=== PATIENT | female | born 1960 | race Caucasian/White ===

== ENCOUNTER 2020-09-21 08:16 | Outpatient (REF) | payer OTHER, SELFPAY ==
--- NOTE | 2020-09-21 08:21 | MM_ITS ---
EXAMINATION: MM SCREENING DIGITAL BREAST TOMOSYNTHESIS, BILATERAL CLINICAL INFORMATION: Screening. Asymptomatic. Family history breast cancer, aunts x2, age 80s). Personal history excisional biopsy 2006. The lifetime risk of breast cancer based on the Tyrer-Cuzick Model is 24%. COMPARISON: Mammography: 09/16/2019, 08/26/2018, 04/28/2017 TECHNIQUE: Digital breast tomosynthesis is performed in both the craniocaudal and mediolateral oblique views along with computer-aided detection (CAD). Synthesized 2D images are generated from the tomosynthesis. FINDINGS: There are scattered areas of fibroglandular density (ACR BI-RADS breast composition Category b). Parenchymal pattern is similar to prior exams. There is no developing density or interval mass or architectural abnormality. There are scattered bilateral calcifications again seen, some are ductal secretory. The axilla are unremarkable. No significant changes. MM/MM tomosynthesis screening BI IMPRESSION: No significant changes from prior exams. ASSESSMENT: BI-RADS 2: Benign RECOMMENDATION: 1. Routine annual mammography screening. 2. The lifetime risk of breast cancer based on the Tyrer-Cuzick Model is 24%. Additional annual adjunct screening with breast MRI may be of benefit in women with a risk score of 20% or greater. This patient's information was entered into a reminder system with a target due date for their next mammogram.
== END 2020-09-21 08:17 | disposition home or self-care (01) ==
LOC: HO.MAMMO 08:16
PROVIDERS: PCP Internal Medicine; Visit Provider Internal Medicine
DX: Z12.31 Encounter for screening mammogram for malignant neoplasm of breast (principal)
CPT/HCPCS: 77063; 77067

== ENCOUNTER 2021-12-04 09:12 | Outpatient (REF) | payer OTHER, SELFPAY ==
--- NOTE | ~2021-12-04 | MM_ITS ---
EXAMINATION: MM SCREENING DIGITAL BREAST TOMOSYNTHESIS, BILATERAL CLINICAL INFORMATION: Screening. Asymptomatic. The lifetime risk of breast cancer based on the Tyrer-Cuzick Model is 16.0%. COMPARISON: Mammography: September 21, 2020 and studies dating back to May 06, 2012 TECHNIQUE: Digital breast tomosynthesis is performed in both the craniocaudal and mediolateral oblique views along with computer-aided detection (CAD). Synthesized 2D images are generated from the tomosynthesis. FINDINGS: There are scattered areas of fibroglandular density (ACR BI-RADS breast composition Category b). There are no new significant masses, abnormal calcifications, or other abnormalities. Stable postsurgical scar about the lateral aspect of the right breast noted. MM/MM tomosynthesis screening BI IMPRESSION: There are no significant changes from prior study. ASSESSMENT: BI-RADS 2: Benign RECOMMENDATION: Routine annual mammography screening. This patient's information was entered into a reminder system with a target due date for their next mammogram.
== END 2021-12-04 09:13 | disposition home or self-care (01) ==
LOC: HO.MAMMO 09:12
PROVIDERS: PCP Internal Medicine; Visit Provider Internal Medicine
DX: Z12.31 Encounter for screening mammogram for malignant neoplasm of breast (principal)
CPT/HCPCS: 77063; 77067

== ENCOUNTER → 2022-10-14 08:51 | Outpatient (REF) | payer OTHER, SELFPAY ==
--- NOTE | 2022-10-14 08:55 | CA_ITS ---
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 The visually estimated ejection fraction is >70%. - There is mild calcification of the aortic valve. - There is moderate mitral annular calcification. Findings Procedure Information Contrast agent, definity, is being given per protocol without apparent complications. Left Ventricle Normal left ventricular cavity size. The left ventricular systolic function is hyperdynamic. The visually estimated ejection fraction is >70%. There is no evidence of regional wall motion abnormalities. Diastolic function is normal for age. There is mild septal asymmetric hypertrophy. Right Ventricle Normal right ventricular cavity size and systolic function. Atria Both atria are normal in size. Aortic Valve There is mild calcification of the aortic valve. There is no aortic valve stenosis. There is no aortic valve regurgitation. Mitral Valve There is moderate mitral annular calcification. There is no mitral valve regurgitation. There is no mitral valve stenosis. Pulmonic Valve The pulmonic valve is likely normal. Tricuspid Valve Normal tricuspid valve structure. There is no tricuspid valve regurgitation. The right ventricular systolic pressure is normal. Great Vessels The asc aorta is normal in size. Venous The inferior vena cava is normal in size and collapses greater than 50% with inspiration. Pericardium/Pleural There is no evidence of pericardial effusion. Prior Study Comparison Changes noted compared to prior study dated: 10/01/2013. LV hyperdynamic. Measurements 2D Linear Measurements IVSd: 1.27 0.6-0.9/0.6-1.0 cm LVIDd: 5.07 3.9-5.3/4.2-5.9 cm LVIDd Index: 2.34 2.4-3.2/2.2-3.1 cm/m2 LVIDs: 3.23 2.0-3.6 cm LVPWd: 0.95 0.7-1.1 cm LA Diam: 4.50 2.7-3.8/3.0-4.0 cm LAIDs Index: 2.07 1.5-2.3 cm/m2 LV Mass: 267.71 67-162/88-224 g LV Mass Index: 123.37 43-95/49-115 g/m2 LVOT Diam: 2.20 3.0+(-)1.3 cm 2D Systolic Function EF 4C: 79.60 >55% EF 2C: 77.30 >55% EF BiP: 78.90 >55% Mitral Valve MV VTI: 0.41 MV Pk Carlos Alberto: 1.15 MV Mn Carlos Alberto: 0.60 MV Pk Grad: 5.00 MV Mn Grad: 2.00 MV Pk E: 1.14 MV PK A: 1.05 MV Decel Time: 267.00 E/A: 1.10 E'Lateral: 8.49 E'Medial: 5.98 E/E' Med: 19.10 E/E' Lat: 13.40 PHT: 78.00 MVA PHT: 2.82 MVA Continuity: 2.63 Decel Gila: 4.25 Aortic Valve AoV Pk Carlos Alberto: 2.51 AoV Mn Carlos Alberto: 1.60 AoV VTI: 0.51 AoV Pk Grad: 25.00 Aov Mn Grad: 13.00 LIAT Cont.VTI: 2.15 LVOT LVOT Pk Carlos Alberto: 1.23 LVOT Mn Carlos Alberto: 0.89 LVOT VTI: 0.29 LVOT Pk Grad: 6.00 LVOT Mn Grad: 4.00 LVOT Diam: 2.20 LVOT Area: 3.80 Diastolic Function MV Pk E: 1.14 MV Pk A: 1.05 E/A: 1.10 E'Medial: 5.98 E/E' Med: 19.10 E' Laterial: 8.49 E/E' Lat: 13.40 Right Ventricle TAPSE (mm): 23.80 TVS' Carlos Alberto: 12.60 Tricuspid Valve RA Press: 3.00 Great Vessels Aorta Sinus of Valsalva: 3.20 2.0-3.5 cm Ao Asc: 3.50 2.1-3.4 cm Pulmonary Veins Pulm Vein S/D 0.80 Pulmonary Valve PV Pk Carlos Alberto: 1.12 Peak PV Grad: 5.00 Updated in Other Vendor System with Status of Final Nicola Iyer MD electronically signed on 10/14/2022 1:45:16 PM with status of Final
== END ==
LOC: HO.CARD 08:51
PROVIDERS: PCP Internal Medicine; Visit Provider Internal Medicine
DX: R01.1 Cardiac murmur, unspecified (principal)
CPT/HCPCS: 93306; Q9957

== ENCOUNTER 2022-10-30 09:09 | Outpatient (REF) | payer OTHER, SELFPAY ==
[2022-10-30 11:24] LABS: MANUAL DIFF FLAG NO
[2022-10-30 11:31] LABS: Basophils Percent Auto 0.6 % (0-2); Eosinophils Absolute Auto 0.2 X10*3/uL (0.0-0.4); Eosinophils Percent Auto 2.8 % (0-4); Hematocrit 44.4 % (37.0-47.0); Hemoglobin 14.5 g/dl (12.0-16.0); Imm Gran Abs Auto 0.02 X10*3/uL (0.00-0.03); Imm Gran Pct Auto 0.3 % (0.0-0.4); Lymphocytes Absolute Auto 2.5 X10*3/uL (1.2-4.9); Lymphocytes Percent Auto 38.7 % (20-40); Mean Corpuscular HGB Conc 32.7 g/dl (31.0-35.0); Mean Corpuscular Hemoglobin 29.2 pg (27.0-33.0); Mean Corpuscular Volume 89.3 fL (80.0-98.0); Mean Platelet Volume 10.7 fL (9.4-12.3); Monocytes Absolute Auto 0.5 X10*3/uL (0.1-1.2); Neutrophils Absolute Auto 3.3 x10*3/uL (2.0-8.3); Neutrophils Percent Auto 50.6 % (45-73); Platelet Count 250 X10*3/uL (160-400); Red Blood Count 4.97 X10*6/uL (4.20-5.50); Red Cell Distribution Width 13.4 % (11.0-16.0); White Blood Count 6.5 X10*3/uL (4.8-10.8)
[2022-10-30 12:05] LABS: Alanine Aminotransferase 62 U/L (0-31); Anion Gap 13 (12-20); Aspartate Amino Transferase 56 U/L (5-31); Blood Urea Nitrogen 14 mg/dL (9-16); Calcium 9.2 mg/dL (8.4-10.2); Carbon Dioxide 26 mmol/L (22-29); Chloride 107 mmol/L (96-108); Cholesterol 215 mg/dL; Estimated Glomerular Filt Rate > 60; Glucose Fasting 109 mg/dL (60-99); HDL Cholesterol 39 mg/dL; LDL Cholesterol Calculated 143 mg/dl; Potassium 4.2 mmol/L (3.3-5.1); Sodium 142 mmol/L (135-145); Triglycerides 166 mg/dL
[2022-10-30 12:07] LABS: TSH reflex Free T4 2.09 uIU/mL (0.32-4.0); Vitamin D 25-OH Total 22.9 ng/mL (>30)
== END 2022-10-30 09:10 | disposition home or self-care (01) ==
LOC: HO.HMGCLDS 09:09
PROVIDERS: PCP Internal Medicine; Visit Provider Internal Medicine
DX: E55.9 Vitamin D deficiency, unspecified (principal); E66.01 Morbid (severe) obesity due to excess calories; E78.5 Hyperlipidemia, unspecified; I10 Essential (primary) hypertension; M17.0 Bilateral primary osteoarthritis of knee; N95.1 Menopausal and female climacteric states
CPT/HCPCS: 36415; 80048; 80061; 82306; 84443; 84450; 84460; 85025

== ENCOUNTER 2022-11-27 11:15 | Outpatient (REF) | payer OTHER, SELFPAY ==
[2022-12-03 06:09] LABS: HPV mRNA E6/E7 rflx Not Detected (Not Detected)
== END 2022-11-27 11:16 | disposition home or self-care (01) ==
LOC: HO.LNP 11:15
PROVIDERS: PCP Internal Medicine; Visit Provider Advanced Practice Midwife
DX: Z01.419 Encounter for gynecological examination (general) (routine) without abnormal findings (principal); N95.1 Menopausal and female climacteric states; N89.8 Other specified noninflammatory disorders of vagina; R39.15 Urgency of urination
CPT/HCPCS: 87624; 88142

== ENCOUNTER 2022-12-09 08:09 | Outpatient (REF) | payer OTHER, SELFPAY ==
--- NOTE | ~2022-12-09 | MM_ITS ---
EXAMINATION: BONE DENSITOMETRY CLINICAL INDICATION: Menopause. COMPARISON: This is the patient's baseline examination. TECHNIQUE: Using a i[employer]UREtrac DXA System (software version: 13.1) manufactured by [employer], dual-energy x-ray absorptiometry was performed of the lumbar spine and left hip. The images are of good technical quality. Summary results are attached. FINDINGS: AP SPINE L1-L4: BMD 1.311 g/cm2, Z-score 1.3, T-score 1.1, normal. LEFT FEMUR, NECK: BMD 0.942 g/cm2, Z-score -0.1, T-score -0.7, normal. LEFT FEMUR, TOTAL: BMD 1.114 g/cm2, Z-score 1.1, T-score 0.8, normal. IDENTIFIED RISK FACTORS: Osteoporosis. Low calcium intake. Menopause. HISTORY OF FRACTURE: None listed. MEDICATIONS: None listed. MM/XR DEXA axial skeleton IMPRESSION: 1. DIAGNOSIS: Normal bone density based on the lowest T-score value of -0.7 in the femoral neck applying World Health Organization criteria. 2. 10-YEAR FRACTURE RISK PREDICTION, FRAX: According to the guidelines, FRAX calculation should only be performed on patients in the osteopenia bone density category. Therefore, FRAX was not performed on this patient.? 3. Treatment Recommendations: NOF guidelines recommend consideration for treatment in postmenopausal women and men age 50 and older presenting with the following: -A hip or vertebral (clinical or morphometric) fracture. -T-score less than or equal to -2.5 at the femoral neck or spine after appropriate evaluation to exclude secondary causes. -Low bone mass at the hip or spine and a 10-year fracture probability by FRAX of greater than or equal to 3% for hip fracture or greater than or equal to 20% for major osteoporotic fracture based on the [place] adapted WHO algorithm. 4. Other Recommendations: All treatment decisions require clinical judgment and consideration of individual patient factors, including patient preferences, comorbidities, previous drug use, risk factors not captured in the FRAX model (e.g. frailty, falls, vitamin D deficiency, increased bone turnover, interval significant decline in bone density) and possible under or overestimation of fracture risk by FRAX. FUTURE SCAN RECOMMENDATION: People with diagnosed cases of osteoporosis or at high risk for fracture should have regular bone mineral density tests. For patients eligible for Medicare, routine testing is allowed once every 2 years. The testing frequency can be increased to one year for patients who have rapidly progressing disease, those who are receiving or discontinuing medical therapy to restore bone mass, or have additional risk factors.
--- NOTE | ~2022-12-09 | MM_ITS ---
EXAMINATION: MM SCREENING DIGITAL BREAST TOMOSYNTHESIS, BILATERAL CLINICAL INFORMATION: Screening. Asymptomatic. Previous left breast biopsy. The lifetime risk of breast cancer based on the Tyrer-Cuzick Model is 12%. COMPARISON: Mammography: 12/04/2021 and studies dating back to 10/21/2007. TECHNIQUE: Digital breast tomosynthesis is performed in both the craniocaudal and mediolateral oblique views along with computer-aided detection (CAD). Synthesized 2D images are generated from the tomosynthesis. FINDINGS: There are scattered areas of fibroglandular density (ACR BI-RADS breast composition Category b). There are no new significant masses, abnormal calcifications, or other abnormalities. Stable asymmetric density seen in the upper outer aspect of the right breast. Postsurgical change left breast. MM/MM tomosynthesis screening BI IMPRESSION: No significant changes from prior exam. ASSESSMENT: BI-RADS 2: Benign. RECOMMENDATION: Routine annual mammography screening. This patient's information was entered into a reminder system with a target due date for their next mammogram.
== END 2022-12-09 08:10 | disposition home or self-care (01) ==
LOC: HO.MAMMO 08:09
PROVIDERS: PCP Internal Medicine; Visit Provider Internal Medicine
DX: Z12.31 Encounter for screening mammogram for malignant neoplasm of breast (principal); Z13.820 Encounter for screening for osteoporosis; Z78.0 Asymptomatic menopausal state
CPT/HCPCS: 77063; 77067; 77080

== ENCOUNTER → 2023-02-19 10:53 | Outpatient (BNVA) | payer OTHER, SELFPAY | PROVIDERS: PCP Internal Medicine; Visit Provider Nurse Practitioner Family | DX: N39.3 Stress incontinence (female) (male) (principal); R39.15 Urgency of urination | CPT/HCPCS: 51798 ==

== ENCOUNTER 2023-04-16 07:16 | Outpatient (REF) | payer OTHER, SELFPAY ==
[2023-04-16 11:56] LABS: Estimated Average Glucose 117 mg/dL; Hemoglobin A1c % 5.7 %
[2023-04-16 12:11] LABS: Alanine Aminotransferase 60 U/L (0-31); Alkaline Phosphatase 72 U/L (39-117); Anion Gap 15 (12-20); Aspartate Amino Transferase 63 U/L (5-31); Bilirubin Direct 0.1 mg/dL (0.0-0.5); Bilirubin Total 0.4 mg/dL (0.0-1.0); Blood Urea Nitrogen 16 mg/dL (9-16); Calcium 9.4 mg/dL (8.4-10.2); Carbon Dioxide 25 mmol/L (22-29); Chloride 106 mmol/L (96-108); Cholesterol 209 mg/dL; Estimated Glomerular Filt Rate > 60; Glucose Fasting 114 mg/dL (60-99); HDL Cholesterol 42 mg/dL; LDL Cholesterol Calculated 132 mg/dl; Potassium 3.8 mmol/L (3.3-5.1); Sodium 142 mmol/L (135-145); Total Protein 7.3 g/dL (6.5-8.0); Triglycerides 177 mg/dL
[2023-04-16 12:12] LABS: Vitamin D 25-OH Total 56.3 ng/mL (>30)
== END 2023-04-16 07:17 | disposition home or self-care (01) ==
LOC: HO.HMGCLDS 07:16
PROVIDERS: PCP Internal Medicine; Visit Provider Internal Medicine
DX: E55.9 Vitamin D deficiency, unspecified (principal); E66.01 Morbid (severe) obesity due to excess calories; I10 Essential (primary) hypertension; N95.1 Menopausal and female climacteric states; E78.5 Hyperlipidemia, unspecified
CPT/HCPCS: 36415; 80048; 80061; 80076; 82306; 83036

== ENCOUNTER 2023-04-17 10:48 | Outpatient (AMB) | payer OTHER, SELFPAY ==
--- NOTE | 2023-04-17 10:56 | A.OFFPC_ITS ---
Vital Signs 04/17/23 10:59 Height 5 ft 7 in Weight 255 lb BMI 39.9 BP 130/80 Blood Pressure Location Lt brachial Position Sitting Pulse 68 Pulse Source Pulse Oximeter Pulse Oximetry (%) 97 Oxygen Delivery Method Room Air Intake Visit Reasons: 6 Month follow up Intake Note: Pt is here today for her 6 months f/u Allergies zolmitriptan [From ZOMIG] Allergy (Unknown, Verified 04/17/23 11:08) UNKNOWN Medication List - Last Reconciled 04/17/23 by Antonietta Palomares MD albuterol sulfate 90 mcg/actuation 2 puffs inhalation Q6H PRN fluticasone propionate 50 mcg/actuation 2 sprays intranasal DAILY lisinopril 10 mg PO DAILY 90 days Tobacco use date assessed: 04/17/23 Dental Screening Dental Screen Date: 04/17/23 Did you have a dental visit in the last 12 months?: Yes Did you have a dental problem in the last 6 months where you did not have access to dental care?: Yes Was dental information given to patient?: Patient has dentist HPI 6 Month follow up HPI Details 62-year-old lady with hypertension, obesity, osteoarthritis , prediabetes and dyslipidemia, here today for six-month follow-up. She has been compliant with taking her medications and has been feeling well, blood pressure stable controlled on lisinopril 10 mg once a day. Recent fasting labs done showed normal electrolytes, renal function, fasting glucose in the prediabetic range and mildly elevated triglycerides and LDL cholesterol. [facility] Medical History (Updated 04/17/23 @ 11:24 by Antonietta Palomares MD) Dyslipidemia Essential hypertension Menopause syndrome Morbid obesity Osteoarthritis of knees, bilateral Vitamin D deficiency Surgical History History of arthroplasty of right knee Hx of colonoscopy Family History Maternal Aunt Mental health disorder History of breast cancer Maternal Grandfather Mental health disorder Social History Housing: House Alcohol intake: current Alcohol intake frequency: a few times a month Patient Tobacco Use Status: Former Tobacco user e-Cigarette/Vaping Use: Never Used service: No Current occupational status: retired Sexual orientation: Straight/Heterosexual Gender identity: Female Cognitive needs: No Hearing needs: No Vision needs: Yes Questionnaire PHQ-9 Over the last 2 weeks, how often have you been bothered by any of the following problems? Depression Screening Interpretation: Negative Source: Developed by Drs. Brad Boudreaux, Celina Maldonado, Brice Tse and colleagues, with an educational amanda from [employer]. Thrive Questionnaire Date Thrive assessed: 10/01/22 AUDIT C Alcohol Use Questionnaire (AUDIT-C) 1. How often do you have a drink containing alcohol?: Monthly or less 2. How many drinks containing alcohol do you have on a typical day when you are drinking?: 1 or 2 3. How often do you have six or more drinks on one occasion?: Never Total Score: 1 YOU-7 AMB Questionnaire YOU-7 Date YOU - 7 assessed: 10/01/22 Source: Developed by Drs. Brad Boudreaux, Celina Maldonado, Brice Tse and colleagues, with an educational amanda from [employer]. Review of Systems Const Denies body aches, Denies fatigue, Denies fever(s), Denies headache(s) and Denies weakness Eyes Denies change in vision, Denies eye discharge and Denies itchy eyes ENT Denies dizziness, Denies headache(s), Reports nasal congestion (Occasional, uses Flonase nasal spray), Denies nasal discharge, Reports post nasal drip and Denies sore throat Card Denies chest pain, Denies lightheadedness, Denies palpitations and Denies dyspnea Resp Denies chest congestion, Denies cough, Denies dyspnea and Denies wheezing GI Denies abdominal pain, Denies change in bowel habits and Denies heartburn Denies hematuria, Denies urinary frequency, Denies dysuria and Denies urinary urgency Musc Denies myalgias, Denies deformity, Reports arthralgias (Bilateral knees), Denies joint swelling and Reports stiffness Skin/Breast Denies breast pain, Denies breast mass, Denies lesions and Denies rash Neuro Denies dizziness, Denies headache(s) and Denies weakness Psych Reports as per HPI Endo Denies fatigue, Denies polydipsia, Denies polyuria and Denies palpitations Mike/Lymph Denies easy bruising Aller/Immun Denies itchy eyes, Denies seasonal rhinorrhea and Denies wheezing Physical exam (Primary Care) Vital Signs: Last Vital Signs Pulse 68 04/17/23 10:59 BP 130/80 04/17/23 10:59 Pulse Ox 97 04/17/23 10:59 Oxygen Delivery Method Room Air 04/17/23 10:59 BMI result Body Mass Index 39.9 BMI Assessment/Plan discussion: High BMI High, discussed plan: lifestyle, weight reduction, dietary and physical activity Tobacco/Smoking Status: Tobacco use Status Tobacco use date assessed 04/17/23 04/17/23 11:04 Patient Tobacco Use Status Former Tobacco user 04/17/23 10:58 e-Cigarette/Vaping Use Never Used 04/17/23 10:58 Depression Screening Interpretation: Negative Thrive Assessment: Date of Thrive Assessment Date Thrive assessed 10/01/22 04/17/23 10:58 Const General: comfortable, no acute distress and alert Nutritional Appearance: obese morbidly obese Orientation/consciousness: patient oriented x3 HENMT Head: Yes atraumatic Ears: external ears normal General nose exam: Normal external nose present and No nasal discharge present Face and sinus: Yes face symmetric Mouth: oropharynx normal and moist mucous membranes Eyes General: appearance normal, both eyes and all related structures Pupils: Equal, round and reactive pupils present EOM: EOMs intact bilaterally Neck Neck: Yes normal visual inspection, Yes full ROM, Yes no lymphadenopathy and Yes supple Thyroid: Thyroid normal Resp Effort & Inspection: normal respiratory effort and able to speak in complete sentences Auscultation: clear to auscultation bilaterally Cardio Rate: regular rate Rhythm: regular rhythm Heart sounds: S1 normal heart sound present and S2 normal heart sound present Bruits: no abdominal aortic bruits GI Inspection: Yes obesity Palpation (GI): No Abdominal aortic bruit present, Soft to palpation, nontender, no guarding and no masses Auscultation: normal bowel sounds General: Yes no CVA tenderness Back/Spine/Pelvis Back: no CVA tenderness Cervical Spine: cervical ROM normal Thoracic/Lumbar Spine: thoraco-lumbar ROM normal Skin General skin exam: no rashes or lesions noted Neuro General: patient oriented x3, gait normal, tone normal, moves all extremities, Normal light touch and pain sensation, no focal motor deficits and CN's II-XI intact bilaterally Cranial nerves: Yes Equal, round and reactive pupils present Cognition (Neuro): normal cognition Extrem General: Yes full ROM, Yes no joint enlargement, Yes no pedal edema, Yes no calf tenderness and Yes normal gait Results Reviewed Results Reviewed: SPEC : [id number] SUNNY: 04/16/23 STATUS: COMP REQ : [id number] RECD: 04/16/[address]: Antonietta Palomares MD COMP: 04/16/23 ENTERED: 04/16/[address] [facility] [address]: ORDERED: Liver Panel, Met Prof Fast, Lipid Panel, Vitamin D 25-OH Test Result Flag Reference Site Sodium 142 135-145 mmol/L Potassium 3.8 3.3-5.1 mmol/L CL 106 96-108 mmol/L CO2 25 22-29 mmol/L Gap 15 12-20 BUN 16 9-16 mg/dL Creat 0.73 0.5-1.4 mg/dL EGFR > 60 NOTE: For -Wallis[place] individuals, multiply the result by 1.210. Chronic Kidney Disease: Estimated GFR < 60 mL/min/1.73m2 Severe Kidney Disease: Estimated GFR < 15 mL/min/1.73m2 FBS 114 H 60-99 mg/dL A fasting glucose from 100-125 mg/dl is considered impaired (pre-diabetes). CA 9.4 8.4-10.2 mg/dL Total Bili 0.4 0.0-1.0 mg/dL Direct Bili 0.1 0.0-0.5 mg/dL AST (GOT) 63 H 5-31 U/L ALT (GPT) 60 H 0-31 U/L Protein, Total 7.3 6.5-8.0 g/dL Alb 4.0 3.5-5.0 g/dL Triglyceride 177 mg/dL Desirable Triglyceride: less than 150 mg/dL Borderline High Triglyceride 150-199 mg/dL High Triglyceride: 200-499 mg/dL Very High Triglyceride: greater than or equal to 5OO mg/dL Chol 209 mg/dL Desirable Cholesterol: less than 200 mg/dL Borderline High Cholesterol: 200-239 mg/dL High Cholesterol: greater than 239 mg/dL LDL Calculated 132 mg/dl Desirable LDL: less than 100 mg/dL Near Optimal/Above Optimal LDL: 110-129 mg/dL Borderline High LDL: 130-159 mg/dL High LDL: 160-189 mg/dL Very High LDL: greater than or equal to 190 mg/dL HDL 42 mg/dL Desirable HDL: greater than 40 mg/dL Note: This HDL assay may give artificially low results in patients with liver disease. Alk Phos 72 39-117 U/L Vit D 25-OH Tot 56.3 >30 ng/mL Health Based Reference Values* < 20 ng/mL Deficient 20-30 ng/mL Insufficient > 30 ng/mL Sufficient Laboratory Tests 04/16/23 07:21 Estimat Average Glucose 117 Hemoglobin A1c % 5.7 Assessment and Plan Assessment & Plan (1) Essential hypertension: Code(s): I10 - Essential (primary) hypertension Plan: Blood pressure at goal of less than 130/80. Continue with current medication. Reinforced importance of following a low sodium diet, getting regular exercise, and lowering stress levels. (2) Dyslipidemia: Code(s): E78.5 - Hyperlipidemia, unspecified Plan: Reviewed recent fasting lipid profile with patient with mild elevation in triglycerides and LDL cholesterol. Stressed importance of adherence to low- cholesterol diet and getting regular exercise, at least 30 minutes 3 to 4 times a week. Advised patient to make healthy food choices, eat more fruits, vegetables, whole grains, wild caught fish and low-fat dairy. Limit amount of meat and fried or fatty food products, as well as processed foods and fast foods. Repeat another fasting lipid panel in 6 months (3) Morbid obesity: Code(s): E66.01 - Morbid (severe) obesity due to excess calories Plan: Discussed need to increase activity and wt reduction. Recommended focusing on improving your health instead of dieting. : Eat Mediterranean diet, limit foods high in fat, sugar, and calories, eat slowly, pay attention to portion sizes, plan your meals ahead of time, start regular physical activity 150 minutes of moderate intensity exercise or 90 minutes/week of vigorous exercise and increase water intake. (4) Osteoarthritis of knees, bilateral: Code(s): M17.0 - Bilateral primary osteoarthritis of knee Plan: Weight loss recommended, may take Tylenol arthritis 650 mg 1 tablet every 8 hours as needed for joint pain. Orders: Orders Alanine Aminotransferase 09/14/23 E66.01 - Morbid (severe) obesity due to excess calories, E78.5 - Hyperlipidemia, unspecified, I10 - Essential (primary) hypertension, N95.1 - Menopausal and female climacteric states, Z86.39 - Personal history of other endocrine, nutritional and metabolic disease Aspartate Amino Transferase 09/14/23 E66.01 - Morbid (severe) obesity due to excess calories, E78.5 - Hyperlipidemia, unspecified, I10 - Essential (primary) hypertension, N95.1 - Menopausal and female climacteric states, Z86.39 - Personal history of other endocrine, nutritional and metabolic disease Basic Metabolic Panel Fasting 09/14/23 E66.01 - Morbid (severe) obesity due to excess calories, E78.5 - Hyperlipidemia, unspecified, I10 - Essential (primary) hypertension, N95.1 - Menopausal and female climacteric states, Z86.39 - Personal history of other endocrine, nutritional and metabolic disease Lipid Panel 09/14/23 E66.01 - Morbid (severe) obesity due to excess calories, E78.5 - Hyperlipidemia, unspecified, I10 - Essential (primary) hypertension, N95.1 - Menopausal and female climacteric states, Z86.39 - Personal history of other endocrine, nutritional and metabolic disease Vitamin D 25-OH Total 09/14/23 E66.01 - Morbid (severe) obesity due to excess calories, E78.5 - Hyperlipidemia, unspecified, I10 - Essential (primary) hyper tension, N95.1 - Menopausal and female climacteric states, Z86.39 - Personal history of other endocrine, nutritional and metabolic disease Coding Level of Care Code Est Pt Level 4 (29333) Diagnoses Essential hypertension I10 Dyslipidemia E78.5 Morbid obesity E66.01 Osteoarthritis of knees, bilateral M17.0
[2023-04-17 10:59] VITALS: BP 130/80; PULSE 68; O2SAT 97; BMI 39.9
== END 2023-04-17 13:40 | disposition home or self-care (01) ==
PROVIDERS: Visit Provider Internal Medicine
DX: I10 Essential (primary) hypertension (principal); E66.01 Morbid (severe) obesity due to excess calories; Z68.39 Body mass index [BMI] 39.0-39.9, adult; E78.5 Hyperlipidemia, unspecified; M17.0 Bilateral primary osteoarthritis of knee
CPT/HCPCS: 99214

== ENCOUNTER 2023-10-13 09:55 | Outpatient (AMB) | payer OTHER, SELFPAY ==
--- NOTE | 2023-10-13 10:04 | MHC.PC.OV ---
Vital Signs 10/13/23 10:16 10/13/23 10:46 Height 5 ft 7 in Weight 256 lb BMI 40.1 BP 136/74 130/80 Blood Pressure Location Rt brachial Lt brachial Position Sitting Sitting Pulse 70 Pulse Source Pulse Oximeter Pulse Oximetry (%) 95 Oxygen Delivery Method Room Air Intake Visit Reasons: medication blood pressure check Intake Note: Pt is here today to check b/p and request b/p med refill Allergies zolmitriptan [From ZOMIG] Allergy (Unknown, Verified 10/13/23 10:40) UNKNOWN Medication List - Last Reconciled 10/13/23 by Antonietta Palomares MD albuterol sulfate 90 mcg/actuation 2 puffs inhalation Q6H PRN fluticasone propionate 50 mcg/actuation 2 sprays intranasal DAILY lisinopril 10 mg PO DAILY 90 days Tobacco use date assessed: 10/13/23 Dental Screening Dental Screen Date: 10/13/23 Did you have a dental visit in the last 12 months?: Yes Did you have a dental problem in the last 6 months where you did not have access to dental care?: No Was dental information given to patient?: Patient has dentist HPI medication blood pressure check HPI Details 63-year-old lady here today for follow-up on her hypertension. Currently taking lisinopril 10 mg daily, and has been trying to follow recommended diet but admits to not getting any regular exercise lately. Has been feeling well with no complaints at present time [facility] Medical History (Updated 10/14/23 @ 04:55 by Antonietta Palomares MD) Environmental and seasonal allergies Menopause syndrome Osteoarthritis of knees, bilateral Vitamin D deficiency Dyslipidemia Morbid obesity Essential hypertension Surgical History History of arthroplasty of right knee Hx of colonoscopy Family History Maternal Aunt Mental health disorder History of breast cancer Maternal Grandfather Mental health disorder Social History Housing: House Alcohol intake: current Alcohol intake frequency: a few times a month Patient Tobacco Use Status: Former Tobacco user e-Cigarette/Vaping Use: Never Used service: No Current occupational status: retired Sexual orientation: Straight/Heterosexual Gender identity: Female Cognitive needs: No Hearing needs: No Vision needs: Yes Questionnaire PHQ-9 Over the last 2 weeks, how often have you been bothered by any of the following problems? 1. Little interest or pleasure in doing things: not at all 2. Feeling down, depressed, or hopeless: not at all 3. Trouble falling or staying asleep, or sleeping too much: not at all 4. Feeling tired or having little energy: not at all 5. Poor appetite or overeating: not at all 6. Feeling bad about yourself - or that you are a failure or have let yourself or your family down: not at all 7. Trouble concentrating on things, such as reading the newspaper or watching television: not at all 8. Moving or speaking so slowly that other people could have noticed. Or the opposite - being so fidgety or restless that you have been moving around a lot more than usual: not at all 9. Thoughts that you would be better off or of hurting yourself in some way: not at all Total score: 0 Depression Screening Interpretation: Negative Depression Screening Done: Yes 75489 - PHQ-9 Billing: Yes Source: Developed by Drs. Brad Boudreaux, Celina Maldonado, Brice Tse and colleagues, with an educational amanda from [employer]. Thrive Questionnaire Date Thrive assessed: 10/13/23 I am a: Patient What is your living situation today?: I have a steady place to live Within the past 12 months, did the food you bought not last and you didn't have the money to get more?: Never true Within the past 12 months, did you worry whether your food would run out before you got money to buy more?: Never true Do you have trouble paying for medicines?: No Do you have trouble getting transportation to medical appointments?: No Do you have trouble paying your heating and electricity bill?: No Do you have trouble taking care of your child, family member or friend?: No Do you have trouble with day-to-day activities such as bathing, preparing meals, shopping, managing finances, etc.?: No Are you currently unemployed and looking for a job?: No Are you interested in more education?: No THRIVE Score: 0 AUDIT C Alcohol Use Questionnaire (AUDIT-C) 1. How often do you have a drink containing alcohol?: 4 or more times a week 2. How many drinks containing alcohol do you have on a typical day when you are drinking?: 1 or 2 3. How often do you have six or more drinks on one occasion?: Never Total Score: 4 YOU-7 AMB Questionnaire YOU-7 Date YOU - 7 assessed: 10/13/23 Feeling nervous, anxious, or on edge: 0 = Not at all Not being able to stop or control worryin = Not at all Worrying too much about different things: 0 = Not at all Trouble relaxin = Not at all Being so restless that it is hard to sit still: 0 = Not at all Becoming easily annoyed or irritable: 0 = Not at all Feeling afraid as if something awful might happen: 0 = Not at all Total YOU-7 score (0-4 normal; 5-9 mild; 10-14 moderate; 15-21 severe): 0 Source: Developed by Drs. Brad Boudreaux, Celina Maldonado, Brice Tse and colleagues, with an educational amanda from [employer]. YOU-7 Assessment Billing YOU-7 Assessment Tool: YOU-7 Assessment 76649 Review of Systems Const Denies fatigue, Denies fever(s), Denies headache(s) and Denies weakness Eyes Denies change in vision ENT Denies dizziness, Denies headache(s), Reports nasal congestion (Occasional, uses Flonase nasal spray), Denies nasal discharge, Reports post nasal drip and Denies sore throat Card Denies chest pain, Denies lightheadedness, Denies palpitations and Denies dyspnea Resp Denies chest congestion, Denies cough, Denies dyspnea and Denies wheezing GI Denies abdominal pain, Denies change in bowel habits and Denies heartburn Denies hematuria, Denies urinary frequency, Denies dysuria and Denies urinary urgency Musc Denies myalgias, Denies deformity, Reports arthralgias (Bilateral knees), Denies joint swelling and Reports stiffness Skin/Breast Denies breast pain, Denies breast mass, Denies lesions and Denies rash Neuro Denies dizziness, Denies headache(s) and Denies weakness Psych Reports as per HPI Endo Denies fatigue, Denies polydipsia, Denies polyuria and Denies palpitations Mike/Lymph Denies easy bruising Aller/Immun Denies seasonal rhinorrhea and Denies wheezing Physical exam (Primary Care) Vital Signs: Last Vital Signs Pulse 70 10/13/23 10:16 BP 130/80 10/13/23 10:46 Pulse Ox 95 10/13/23 10:16 Oxygen Delivery Method Room Air 10/13/23 10:16 BMI result Body Mass Index 40.1 BMI Assessment/Plan discussion: High BMI High, discussed plan: lifestyle, weight reduction, dietary and physical activity Tobacco/Smoking Status: Tobacco use Status Tobacco use date assessed 10/13/23 10/13/23 10:06 Patient Tobacco Use Status Former Tobacco user 10/13/23 10:06 e-Cigarette/Vaping Use Never Used 10/13/23 10:06 PHQ-9: PHQ-9 Score PHQ-9: Total score 0 10/13/23 10:57 Depression Screening Interpretation: Negative Thrive Assessment: Date of Thrive Assessment Date Thrive assessed 10/13/23 10/13/23 10:26 Const General: comfortable, no acute distress and alert Nutritional Appearance: obese morbidly obese Orientation/consciousness: patient oriented x3 HENMT Head: Yes atraumatic Ears: external ears normal General nose exam: Normal external nose present and No nasal discharge present Face and sinus: Yes face symmetric Mouth: oropharynx normal and moist mucous membranes Eyes General: appearance normal, both eyes and all related structures Neck Neck: Yes normal visual inspection, Yes full ROM, Yes no lymphadenopathy and Yes supple Thyroid: Thyroid normal Resp Effort & Inspection: normal respiratory effort and able to speak in complete sentences Auscultation: clear to auscultation bilaterally Cardio Rate: regular rate Rhythm: regular rhythm Heart sounds: S1 normal heart sound present and S2 normal heart sound present GI Inspection: Yes obesity Palpation (GI): Soft to palpation, nontender, no guarding and no masses Auscultation: normal bowel sounds Neuro General: patient oriented x3, gait normal, tone normal, moves all extremities, Normal light touch and pain sensation, no focal motor deficits and CN's II-XI intact bilaterally Cognition (Neuro): normal cognition Extrem General: Yes full ROM, Yes no joint enlargement, Yes no pedal edema, Yes no calf tenderness and Yes normal gait Assessment and Plan Assessment & Plan (1) Essential hypertension: Code(s): I10 - Essential (primary) hypertension Plan: Blood pressure at goal of less than 130/80. Continue with lisinopril 10 mg daily. Reinforced importance of following a low sodium diet, getting regular exercise, and lowering stress levels. (2) Environmental and seasonal allergies: Code(s): J30.89 - Other allergic rhinitis Plan: Refill prescription sent for fluticasone nasal spray Medications: Refilled fluticasone propionate 50 mcg/actuation administer into each nostril 2 sprays intranasal DAILY 16 grams 3RF Coding Level of Care Code Est Pt Level 3 (05915) Diagnoses Essential hypertension I10 Environmental and seasonal allergies J30.89 Additional Codes YOU-7 Assessment Billing - YOU-7 Assessment Tool: YOU-7 Assessment 26129 ([id number])
[2023-10-13 10:16] VITALS: BP 136/74; PULSE 70; O2SAT 95; BMI 40.1
[2023-10-13 10:46] VITALS: BP 130/80
== END 2023-10-13 16:18 | disposition home or self-care (01) ==
PROVIDERS: PCP Internal Medicine; Visit Provider Internal Medicine
DX: I10 Essential (primary) hypertension (principal); J30.89 Other allergic rhinitis
CPT/HCPCS: 99213

== ENCOUNTER 2024-01-04 10:15 | Outpatient (REF) | payer OTHER, SELFPAY ==
--- NOTE | ~2024-01-04 | MM_ITS ---
EXAMINATION: MM SCREENING DIGITAL BREAST TOMOSYNTHESIS, BILATERAL CLINICAL INFORMATION: Screening. Asymptomatic. COMPARISON: Mammography: This study is compared with prior exams dating back to 2019. TECHNIQUE: Digital breast tomosynthesis is performed in both the craniocaudal and mediolateral oblique views along with computer-aided detection (CAD). Synthesized 2D images are generated from the tomosynthesis. FINDINGS: There are scattered areas of fibroglandular density (ACR BI-RADS breast composition Category b). There are no significant masses, abnormal calcifications, or other abnormalities. Few, bilateral benign calcifications are present. MM/MM tomosynthesis screening BI IMPRESSION: No mammographic evidence of malignancy. ASSESSMENT: BI-RADS BI-RADS 2 - Benign Findings RECOMMENDATION: Routine annual mammography screening. 1 year F/U This examination should not preclude the clinical evaluation of a suspicious palpable abnormality. This patient's information was entered into a reminder system with a target due date for their next mammogram.
== END 2024-01-04 10:16 | disposition home or self-care (01) ==
LOC: HO.MAMMO 10:15
PROVIDERS: PCP Internal Medicine; Visit Provider Internal Medicine
DX: Z12.31 Encounter for screening mammogram for malignant neoplasm of breast (principal)
CPT/HCPCS: 77063; 77067

== ENCOUNTER → 2024-01-04 10:15 | Outpatient (BNV) | payer OTHER, SELFPAY | PROVIDERS: PCP Internal Medicine; Visit Provider Radiology Diagnostic Radiology | DX: Z12.31 Encounter for screening mammogram for malignant neoplasm of breast (principal) | CPT/HCPCS: 77063; 77067 ==

== ENCOUNTER 2024-03-08 08:47 | Outpatient (REF) | payer OTHER, SELFPAY ==
[2024-03-08 12:23] LABS: Alanine Aminotransferase 52 U/L (0-31); Anion Gap 16 (12-20); Aspartate Amino Transferase 54 U/L (5-31); Blood Urea Nitrogen 13 mg/dL (9-16); Calcium 9.7 mg/dL (8.4-10.2); Carbon Dioxide 27 mmol/L (22-29); Chloride 105 mmol/L (96-108); Cholesterol 215 mg/dL (<200); Estimated Glomerular Filt Rate > 60; Glucose Fasting 110 mg/dL (60-99); HDL Cholesterol 40 mg/dL (>40); LDL Cholesterol Calculated 141 mg/dL (<100); Potassium 4.6 mmol/L (3.3-5.1); Sodium 143 mmol/L (135-145); Triglycerides 173 mg/dL (<150)
[2024-03-08 12:42] LABS: Vitamin D 25-OH Total 33.1 ng/mL (>30)
== END 2024-03-08 08:48 | disposition home or self-care (01) ==
LOC: HO.HMGCLDS 08:47
PROVIDERS: PCP Internal Medicine; Visit Provider Internal Medicine
DX: N95.1 Menopausal and female climacteric states (principal); Z86.39 Personal history of other endocrine, nutritional and metabolic disease; I10 Essential (primary) hypertension; E78.5 Hyperlipidemia, unspecified; E66.01 Morbid (severe) obesity due to excess calories
CPT/HCPCS: 36415; 80048; 80061; 82306; 84450; 84460

== ENCOUNTER 2024-04-20 11:49 | Outpatient (AMB) | payer OTHER, SELFPAY ==
[2024-04-20 12:20] VITALS: BP 136/80; PULSE 68; O2SAT 98; BMI 40.2
--- NOTE | 2024-04-20 12:20 | A.OFFPC_ITS ---
Vital Signs 04/20/24 12:20 Height 5 ft 7 in Weight 257 lb BMI 40.2 BP 136/80 Blood Pressure Location Rt brachial Position Sitting Pulse 68 Pulse Source Pulse Oximeter Pulse Oximetry (%) 98 Oxygen Delivery Method Room Air Intake Visit Reasons: F/U BP Check reschd due to no insurance Intake Note: Pt is here today f/u HTN Allergies zolmitriptan [From ZOMIG] Allergy (Unknown, Verified 04/20/24 12:23) UNKNOWN Medication List - Last Reconciled 04/20/24 by Antonietta Palomares MD albuterol sulfate 90 mcg/actuation 2 puffs inhalation Q6H PRN fluticasone propionate 50 mcg/actuation 2 sprays intranasal DAILY lisinopril 10 mg PO DAILY 90 days Tobacco use date assessed: 04/20/24 Dental Screening Dental Screen Date: 04/20/24 Did you have a dental visit in the last 12 months?: Yes Did you have a dental problem in the last 6 months where you did not have access to dental care?: No Was dental information given to patient?: Patient has dentist HPI F/U BP Check reschd due to no insurance HPI Details 63-year-old lady here today for follow-u p on her hypertension . She is currently on lisinopril 10 mg once a day. Had recent fasting labs done which showed normal electrolytes and renal function, fasting glucose in the prediabetic range and elevated triglycerides and LDL cholesterol [facility] Medical History (Updated 04/21/24 @ 01:54 by Antonietta Palomares MD) Mixed dyslipidemia Environmental and seasonal allergies Menopause syndrome Osteoarthritis of knees, bilateral Vitamin D deficiency Morbid obesity Essential hypertension Surgical History History of arthroplasty of right knee Hx of colonoscopy Family History Maternal Aunt Mental health disorder History of breast cancer Maternal Grandfather Mental health disorder Social History Housing: House Alcohol intake: current Alcohol intake frequency: a few times a month Patient Tobacco Use Status: Former Tobacco user e-Cigarette/Vaping Use: Never Used service: No Current occupational status: retired Sexual orientation: Straight/Heterosexual Gender identity: Female Cognitive needs: No Hearing needs: No Vision needs: Yes Questionnaire PHQ-9 Over the last 2 weeks, how often have you been bothered by any of the following problems? 1. Little interest or pleasure in doing things: not at all 2. Feeling down, depressed, or hopeless: not at all 3. Trouble falling or staying asleep, or sleeping too much: not at all 4. Feeling tired or having little energy: not at all 5. Poor appetite or overeating: not at all 6. Feeling bad about yourself - or that you are a failure or have let yourself or your family down: not at all 7. Trouble concentrating on things, such as reading the newspaper or watching television: not at all 8. Moving or speaking so slowly that other people could have noticed. Or the opposite - being so fidgety or restless that you have been moving around a lot more than usual: not at all 9. Thoughts that you would be better off or of hurting yourself in some way: not at all Total score: 0 Depression Screening Interpretation: Negative Depression Screening Done: Yes 35963 - PHQ-9 Billing: Yes Source: Developed by Drs. Brad Boudreaux, Celina Maldonado, Brice Tse and colleagues, with an educational amanda from [employer]. Thrive Questionnaire Date Thrive assessed: 04/20/24 I am a: Patient What is your living situation today?: I have a steady place to live Within the past 12 months, did the food you bought not last and you didn't have the money to get more?: Never true Within the past 12 months, did you worry whether your food would run out before you got money to buy more?: Never true Do you have trouble paying for medicines?: No Do you have trouble getting transportation to medical appointments?: No Do you have trouble paying your heating and electricity bill?: No Do you have trouble taking care of your child, family member or friend?: No Do you have trouble with day-to-day activities such as bathing, preparing meals, shopping, managing finances, etc.?: No Are you currently unemployed and looking for a job?: No Are you interested in more education?: No Please select the resources that you would like help with: Housing/Snf Currently or been in a relationship where the following occur: No concerns reported THRIVE Score: 0 AUDIT C Alcohol Use Questionnaire (AUDIT-C) 1. How often do you have a drink containing alcohol?: 2-3 times a week 2. How many drinks containing alcohol do you have on a typical day when you are drinking?: 1 or 2 3. How often do you have six or more drinks on one occasion?: Never Total Score: 3 YOU-7 AMB Questionnaire YOU-7 Date YOU - 7 assessed: 04/20/24 Feeling nervous, anxious, or on edge: 0 = Not at all Not being able to stop or control worryin = Not at all Worrying too much about different things: 0 = Not at all Trouble relaxin = Not at all Being so restless that it is hard to sit still: 0 = Not at all Becoming easily annoyed or irritable: 0 = Not at all Feeling afraid as if something awful might happen: 0 = Not at all Total YOU-7 score (0-4 normal; 5-9 mild; 10-14 moderate; 15-21 severe): 0 Source: Developed by Drs. Brad Boudreaux, Celina Maldonado, Brice Tse and colleagues, with an educational amanda from [employer]. YOU-7 Assessment Billing YOU-7 Assessment Tool: YOU-7 Assessment 74548 Review of Systems Const Denies fatigue, Denies fever(s), Denies headache(s) and Denies weakness Eyes Denies change in vision ENT Denies dizziness, Denies headache(s), Denies nasal discharge and Denies sore throat Card Denies chest pain, Denies lightheadedness, Denies palpitations and Denies dyspnea Resp Denies chest congestion, Denies cough, Denies dyspnea and Denies wheezing GI Denies abdominal pain, Denies change in bowel habits and Denies heartburn Denies hematuria, Denies urinary frequency, Denies dysuria and Denies urinary urgency Musc Denies myalgias, Denies deformity, Denies joint swelling and Reports stiffness Skin/Breast Denies breast pain, Denies breast mass, Denies lesions and Denies rash Neuro Denies dizziness, Denies headache(s) and Denies weakness Psych Reports as per HPI Endo Denies fatigue, Denies polydipsia, Denies polyuria and Denies palpitations Mike/Lymph Denies easy bruising Aller/Immun Reports seasonal rhinorrhea and Denies wheezing Physical exam (Primary Care) Vital Signs: Last Vital Signs Pulse 68 04/20/24 12:20 BP 136/80 04/20/24 12:20 Pulse Ox 98 04/20/24 12:20 Oxygen Delivery Method Room Air 04/20/24 12:20 BMI result Body Mass Index 40.2 BMI Assessment/Plan discussion: High BMI High, discussed plan: lifestyle, weight reduction, dietary and physical activity Tobacco/Smoking Status: Tobacco use Status Tobacco use date assessed 04/20/24 04/20/24 12:23 Patient Tobacco Use Status Former Tobacco user 04/20/24 12:23 e-Cigarette/Vaping Use Never Used 04/20/24 12:23 PHQ-9: PHQ-9 Score PHQ-9: Total score 0 04/20/24 12:26 Depression Screening Interpretation: Negative Thrive Assessment: Date of Thrive Assessment Date Thrive assessed 04/20/24 04/20/24 12:25 Currently or been in a relationship where the following occur: No concerns reported Const General: comfortable, no acute distress and alert Nutritional Appearance: obese morbidly obese Orientation/consciousness: patient oriented x3 HENMT Head: Yes atraumatic Ears: external ears normal General nose exam: Normal external nose present and No nasal discharge present Face and sinus: Yes face symmetric Mouth: oropharynx normal and moist mucous membranes Eyes General: appearance normal, both eyes and all related structures Neck Neck: Yes normal visual inspection, Yes full ROM, Yes no lymphadenopathy and Yes supple Thyroid: Thyroid normal Resp Effort & Inspection: normal respiratory effort and able to speak in complete sentences Auscultation: clear to auscultation bilaterally Cardio Rate: regular rate Rhythm: regular rhythm Heart sounds: S1 normal heart sound present and S2 normal heart sound present GI Inspection: Yes obesity Palpation (GI): Soft to palpation, nontender, no guarding and no masses Auscultation: normal bowel sounds Neuro General: patient oriented x3, gait normal, tone normal, moves all extremities, Normal light touch and pain sensation, no focal motor deficits and CN's II-XI intact bilaterally Cognition (Neuro): normal cognition Extrem General: Yes full ROM, Yes no joint enlargement, Yes no pedal edema, Yes no calf tenderness and Yes normal gait Results Reviewed Results Reviewed: Name: Rebecca Simon Mable Age/Sex: 63/F : 1960 Unit#: [id number] Attend Dr: Antonietta Palomares MD Re03/08/24 Status: DEP [facility] Disch: SPEC : [id number] SUNNY: 03/08/24 STATUS: COMP REQ : [id number] RECD: 03/08/24-[address]: Antonietta Palomares MD COMP: 03/08/24 ENTERED: 03/08/[address] [facility] DR: ORDERED: Met Prof Fast, AST, ALT, Lipid Panel, Vitamin D 25-OH Test Result Flag Reference Sodium 143 135-145 mmol/L Potassium 4.6 3.3-5.1 mmol/L CL 105 96-108 mmol/L CO2 27 22-29 mmol/L Gap 16 12-20 BUN 13 9-16 mg/dL Creat 0.73 0.5-1.4 mg/dL EGFR > 60 NOTE: For -[place] individuals, multiply the result by 1.210. Chronic Kidney Disease: Estimated GFR < 60 mL/min/1.73m2 Severe Kidney Disease: Estimated GFR < 15 mL/min/1.7 3m2 FBS 110 H 60-99 mg/dL A fasting glucose from 100-125 mg/dl is considered impaired (pre-diabetes). CA 9.7 8.4-10.2 mg/dL AST (GOT) 54 H 5-31 U/L ALT (GPT) 52 H 0-31 U/L Triglyceride 173 H <150 mg/dL Desirable Triglyceride: less than 150 mg/dL Borderline High Triglyceride 150-199 mg/dL High Triglyceride: 200-499 mg/dL Very High Triglyceride: greater than or equal to 5OO mg/dL Cholesterol 215 H <200 mg/dL Desirable Cholesterol: less than 200 mg/dL Borderline High Cholesterol: 200-239 mg/dL High Cholesterol: greater than 239 mg/dL LDL Calculated 141 H <100 mg/dL Desirable LDL: less than 100 mg/dL Near Optimal/Above Optimal LDL: 110-129 mg/dL Borderline High LDL: 130-159 mg/dL High LDL: 160-189 mg/dL Very High LDL: greater than or equal to 190 mg/dL HDL 40 L >40 mg/dL Desirable HDL: greater than 40 mg/dL Note: This HDL assay may give artificially low results in patients with liver disease. Vit D 25-OH Tot 33.1 >30 ng/mL Health Based Reference Values* < 20 ng/mL Deficient 20-30 ng/mL Insufficient > 30 ng/mL Sufficient Assessment and Plan Assessment & Plan (1) Mixed dyslipidemia: Code(s): E78.2 - Mixed hyperlipidemia Plan: Reviewed recent fasting lab results with patient which showed elevated triglycerides and LDL cholesterol. Reinforced importance of following a low- cholesterol diet and regular exercise. Will refer to our dietitian for further guidance (2) Essential hypertension: Code(s): I10 - Essential (primary) hypertension Plan: Continued on lisinopril 10 mg once daily and reinforced importance of following a low-salt diet and getting regular exercise. Coding Level of Care Code Est Pt Level 4 (99803) Complex EM visit Add On G2211 Diagnoses Mixed dyslipidemia E78.2 Essential hypertension I10 Additional Codes YOU-7 Assessment Billing - YOU-7 Assessment Tool: YOU-7 Assessment 60008 ([id number])
== END 2024-04-20 13:14 | disposition home or self-care (01) ==
PROVIDERS: PCP Internal Medicine; Visit Provider Internal Medicine
DX: E78.2 Mixed hyperlipidemia (principal); I10 Essential (primary) hypertension
CPT/HCPCS: 99214

== ENCOUNTER 2024-05-18 08:23 | Day surgery (SDC) | payer OTHER, SELFPAY ==
[2024-05-13 14:25] VITALS: BMI 40.9
[2024-05-18 09:26] VITALS: BMI 40.8
[2024-05-18 09:36] VITALS: BP 131/87; PULSE 60; RESP 18; TEMP 36.8; O2SAT 98
[2024-05-18] MEDS: Lactated Ringers 1,000 ML 100 ML IVCONT (09:49)
--- NOTE | 2024-05-18 11:15 | P.CONAN_ITS ---
Documented by User: Kate Styles NP 05/17/24 09:52 HPI - Anesthesia Eval Consult details Narrative: 63yo F for Colonoscopy PMFSH Active Problems Active Problems: All Active Problems Mixed dyslipidemia (Acute) Environmental and seasonal allergies (Acute) Menopause syndrome (Acute) Osteoarthritis of knees, bilateral (Acute) Morbid obesity (Acute) Essential hypertension (Acute) Past Medical History Medical History (Updated 05/13/24 @ 14:20 by Sarah Ellison, RN) Hyperlipidemia Seasonal allergies Skin cancer Elevated liver enzymes GERD (gastroesophageal reflux disease) Fatty liver Mixed dyslipidemia Environmental and seasonal allergies Menopause syndrome Osteoarthritis of knees, bilateral Vitamin D deficiency Morbid obesity Essential hypertension Family History Family History Maternal Aunt Mental health disorder History of breast cancer Maternal Grandfather Mental health disorder Surgical History Surgical History (Updated 05/13/24 @ 14:20 by Sarah Ellison RN) History of esophagogastroduodenoscopy (EGD) History of total right knee replacement History of arthroplasty of right knee Hx of colonoscopy Social History Social History Housing: House Are you a primary assurance services manager health care to a significant other at home: No Do you presently have visiting nurse or other home services: No Alcohol intake: current Alcohol intake frequency: a few times a month Patient Tobacco Use Status: Former Tobacco user e-Cigarette/Vaping Use: Never Used Have you been hit, kicked, punched, or otherwise hurt by someone within the past year? If so, by whom?: No Are you DNR?: No Advance Directives: No Advance Directives Information Provided: Yes Recently lost weight without trying: No Eating poorly because of decreased appetite: No Nutrition Risks: No Nutritional Risk Patient : No service: No Current occupational status: retired Sexual orientation: Straight/Heterosexual Gender identity: Female Cognitive needs: No Hearing needs: No Vision needs: Yes Meds Allergies Allergy/AdvReac Type Severity Reaction Status Date / Time zolmitriptan [From ZOMIG] Allergy Unknown UNKNOWN Verified 04/20/24 12:23 Home Medications ?Medication ?Instructions ?Recorded ?Confirmed ?Last Taken ?Type omeprazole 20 mg capsule,delayed 20 mg PO DAILY PRN Acid Reflux 05/13/24 05/13/24 Unknown History release Exam Height,Weight and Vital Signs: Height 5 ft 6.5 in Weight 116.573 kg Pertinent Lab Results Pertinent Lab Results: Laboratory Tests 10/30/22 03/08/24 09:14 08:54 WBC 6.5 Hgb 14.5 Hct 44.4 Plt Count 250 Sodium 143 Potassium 4.6 Chloride 105 Carbon Dioxide 27 BUN 13 Creatinine 0.73 Assessment and Plan Assessment Anesthesia Assessment: Chart Reviewed Documented by User: Yuridia Tatum DO 05/18/24 11:20 [facility] Past Medical History Medical History (Updated 05/13/24 @ 14:20 by Sarah Ellison RN) Hyperlipidemia Seasonal allergies Skin cancer Elevated liver enzymes GERD (gastroesophageal reflux disease) Fatty liver Mixed dyslipidemia Environmental and seasonal allergies Menopause syndrome Osteoarthritis of knees, bilateral Vitamin D deficiency Morbid obesity Essential hypertension Family History Family History Maternal Aunt Mental health disorder History of breast cancer Maternal Grandfather Mental health disorder Family history of problems with anesthesia: No Surgical History Surgical History (Updated 05/13/24 @ 14:20 by Sarah Ellison RN) History of esophagogastroduodenoscopy (EGD) History of total right knee replacement History of arthroplasty of right knee Hx of colonoscopy History of Problems with Anesthesia: No Social History Social History Housing: House Are you a primary assurance services manager health care to a significant other at home: No Do you presently have visiting nurse or other home services: No Alcohol intake: current Alcohol intake frequency: a few times a month Patient Tobacco Use Status: Former Tobacco user e-Cigarette/Vaping Use: Never Used Have you been hit, kicked, punched, or otherwise hurt by someone within the past year? If so, by whom?: No Are you DNR?: No Advance Directives: No Advance Directives Information Provided: Yes Recently lost weight without trying: No Eating poorly because of decreased appetite: No Nutrition Risks: No Nutritional Risk Patient : No service: No Current occupational status: retired Sexual orientation: Straight/Heterosexual Gender identity: Female Cognitive needs: No Hearing needs: No Vision needs: Yes Meds Allergies Allergy/AdvReac Type Severity Reaction Status Date / Time zolmitriptan [From ZOMIG] Allergy Unknown UNKNOWN Verified 04/20/24 12:23 Home Medications ?Medication ?Instructions ?Recorded ?Confirmed ?Last Taken ?Type omeprazole 20 mg capsule,delayed 20 mg PO DAILY PRN Acid Reflux 05/13/24 05/13/24 Unknown History release Exam Exam Date and Time: 05/18/24 1115 Height,Weight and Vital Signs: Height 5 ft 6.5 in Weight 116.573 kg Vital Signs Temperature 98.3 F 05/18/24 09:36 Pulse Rate 60 05/18/24 09:36 Respiratory Rate 18 05/18/24 09:36 Blood Pressure 131/87 05/18/24 09:36 Pulse Oximetry 98 05/18/24 09:36 Oxygen Delivery Method Room Air 05/18/24 09:36 Temperature 98.3 F 05/18/24 09:36 Pulse Rate 60 05/18/24 09:36 Respiratory Rate 18 05/18/24 09:36 Blood Pressure 131/87 05/18/24 09:36 Pulse Oximetry 98 05/18/24 09:36 Oxygen Delivery Method Room Air 05/18/24 09:36 Airway Mallampati Class: III TM Dist: <=3cm Neck ROM: Full Loose/Missing/Broken Teeth: No (patient denies any loose or broken teeth) Heart: S1S2 Lungs: CTAB Assessment and Plan Final Anesthetic Review Family History of Problems with Anesthesia: No History of Problems with Anesthesia: No NPO: Yes ASA Class: III Final Preanesthetic Review: No Changes in Pt Med Stat, Meds/Allgs Chart Reviewed, Consent Obtained/Reviewed and Anes Risks/Benef Reviewed Patient Risk: Intermediate Procedure Risk: Low Anesthetic Plan Anesthetic Plan: MAC: and Agree w/ Assess. and Plan Disposition: Standard PACU
[2024-05-18 12:32] VITALS: BP 110/58; PULSE 76; RESP 16; TEMP 36.9; O2SAT 97
--- NOTE | 2024-05-18 12:37 | PM.OP ---
Brief Operative Note Date of Service: 05/18/24 Pre-op diagnosis: Screening Post-op diagnosis: other (Diverticulosis) Procedure: Colonoscopy to the cecum and TI Surgeon: Brad Fuentes MD Anesthesia: MAC Was an Appointment Coordinator used for this Procedure?: No Estimated blood loss (mL): 0 Pathology: none sent Condition: stable Disposition: PACU
[2024-05-18 12:47] VITALS: BP 137/86; PULSE 70; RESP 17; TEMP 36.7; O2SAT 96
--- NOTE | 2024-05-18 13:35 | OP_ITS ---
DATE OF SERVICE: 05/18/2024 SURGEON: Brad Fuentes MD INDICATIONS: The patient presents for evaluation of colorectal cancer screening. Full consent has been obtained from her for this, including risks of bleeding and perforation. PREOPERATIVE DIAGNOSIS: Colorectal cancer screening. POSTOPERATIVE DIAGNOSIS: PROCEDURE PERFORMED: Colonoscopy to the cecum and terminal ileum. ESTIMATED BLOOD LOSS: COMPLICATIONS: ANESTHESIA: Monitored anesthesia care. ASSISTANTS: SPECIMENS: POSTOPERATIVE DIAGNOSES: Colorectal cancer screening, diverticulosis, and internal hemorrhoids. DESCRIPTION OF PROCEDURE: The patient was placed in the left lateral decubitus position. The digital rectal exam revealed no abnormalities. The Olympus video pediatric colonoscope was then entered into the rectum and advanced to the cecum. Advancement past the sigmoid was somewhat difficult. Once in the cecum, I did identify normal-appearing cecal pouch with appendiceal orifice and a normal-appearing ileocecal valve. The terminal ileum was cannulated and appeared normal. The scope was withdrawn back in the colon. The entire cecum and ileocecal valve appeared normal. The scope was slowly withdrawn assessing all mucosal surfaces carefully. Preparation was excellent. I did not visualize any sign of polyps, colitis, nor angiodysplasias. There was a moderate amount of sigmoid diverticulosis. In the rectum, scope was retroflexed, visualizing internal hemorrhoids, but no other pathology. The rectal mucosa appeared normal. The scope was straightened and withdrawn from the patient. She tolerated the procedure well and was returned to the recovery area in stable condition. IMPRESSION: 1. Diverticulosis. 2. Internal hemorrhoids. PLAN: Given today's negative exam, I would recommend a repeat colonoscopy in 10 years for further screening. She will, otherwise, see me on a p.r.n. basis. This has been discussed with her . MD ZEKE Laboy/JOSE / [id number]
== END 2024-05-18 13:37 | disposition home or self-care (01) ==
PROVIDERS: PCP Internal Medicine; Visit Provider Internal Medicine
PROC: 0DJD8ZZ Inspection of Lower Intestinal Tract, Via Natural or Artificial Opening Endoscopic (ICD-10-PCS; CPT 45378; principal; 2024-05-18 09:40)
DX: Z12.11 Encounter for screening for malignant neoplasm of colon (principal); K57.30 Diverticulosis of large intestine without perforation or abscess without bleeding; K64.8 Other hemorrhoids; K21.9 Gastro-esophageal reflux disease without esophagitis; K76.0 Fatty (change of) liver, not elsewhere classified; I10 Essential (primary) hypertension; E78.5 Hyperlipidemia, unspecified; J30.2 Other seasonal allergic rhinitis; Z85.828 Personal history of other malignant neoplasm of skin; Z79.899 Other long term (current) drug therapy; Z88.8 Allergy status to other drugs, medicaments and biological substances; Z98.890 Other specified postprocedural states; Z87.891 Personal history of nicotine dependence
CPT/HCPCS: 45378; J2704

== ENCOUNTER 2024-10-12 08:47 | Outpatient (AMB) | payer OTHER, SELFPAY ==
[2024-10-12 09:04] VITALS: BP 132/74; PULSE 69; RESP 16; TEMP 36.6; O2SAT 98; BMI 41.0
--- NOTE | 2024-10-12 09:04 | A.OFFPC_ITS ---
Vital Signs 10/12/24 09:04 Height 5 ft 6.5 in Weight 258 lb BMI 41.0 BP 132/74 Blood Pressure Location Rt brachial Position Sitting Respiration 16 Pulse 69 Pulse Source Pulse Oximeter Temp 97.9 F Temp Source Oral Pulse Oximetry (%) 98 Oxygen Delivery Method Room Air Intake Visit Reasons: Annual PE Intake Note: Pt is here today for her PE:Last mammogram 01/04/24, papsmear 11/28/22, colonoscopy 05/18/24 Allergies zolmitriptan [From ZOMIG] Allergy (Unknown, Verified 10/16/24 16:04) UNKNOWN Medication List - Last Reconciled 10/12/24 by Antonietta Palomares MD albuterol sulfate 90 mcg/actuation 2 puffs inhalation Q6H PRN cholecalciferol (vitamin D3) 50 mcg PO DAILY fluticasone propionate 50 mcg/actuation 2 sprays intranasal DAILY lisinopril 10 mg PO DAILY 90 days omeprazole 20 mg PO DAILY PRN Tobacco use date assessed: 10/12/24 Last assessed Fall Risk: 10/12/24 Dental Screening Dental Screen Date: 10/12/24 Did you have a dental visit in the last 12 months?: Yes Did you have a dental problem in the last 6 months where you did not have access to dental care?: No Was dental information given to patient?: Patient has dentist HPI Annual PE HPI Details - The patient is a 64-year-old female pr esenting her physical exam.The primary focus is on her Reactive Airway Disease, which she manages with albuterol. She walks frequently, reporting decreased cold-induced symptoms since quitting smoking over 30 years ago. - She has had Mohs surgery for both Basa l Cell Carcinoma on the lip and Squamous Cell Carcinoma on the scalp, with regular dermatology visits for monitoring. - She maintains vitamin D supplementatio n due to previous borderline levels - Her bloodwork history shows pre-diabet ic glucose levels and hyperlipidemia, which are under active management alongside hypertension. -up-to-date with her screening mammogram , cervical cancer screening and colonoscopy screening - Continues to deal with rosacea, linked to certain dietary factors. - Experiences sporadic migraines effecti vely treated with [id number] medication. - Retired, with family support primarily involving her . - Daughter resides in [place], with rece nt [facility] noted. Supports family by visiting regularly. - Engaged in exercises such as walking a nd weightlifting. Reports frequent travel to visit family. - Lives a relatively active lifestyle wi th significant familial support despite geographic distance. [facility] Medical History (Updated 10/12/24 @ 10:04 by Antonietta Palomares MD) MENON (dyspnea on exertion) History of basal cell cancer Hyperlipidemia Seasonal allergies Skin cancer Elevated liver enzymes GERD (gastroesophageal reflux disease) Fatty liver Mixed dyslipidemia Environmental and seasonal allergies Menopause syndrome Osteoarthritis of knees, bilateral Vitamin D deficiency Morbid obesity Essential hypertension Surgical History (Updated 10/16/24 @ 16:13 by Antonietta Palomares MD) History of Mohs surgery for squamous cell carcinoma of skin History of esophagogastroduodenoscopy (EGD) History of total right knee replacement History of arthroplasty of right knee Hx of colonoscopy Family History (Updated 05/27/24 @ 11:33 by Elis Calabrese) Maternal Aunt Mental health disorder History of breast cancer Maternal Grandfather Mental health disorder Father COPD (chronic obstructive pulmonary disease) CHF (congestive heart failure) Mother Hypertension Cancer Social History Housing: House Are you a primary restorative care technician to a significant other at home: No Do you presently have visiting nurse or other home services: No Alcohol intake: current Alcohol intake frequency: a few times a month Patient Tobacco Use Status: Former Tobacco user e-Cigarette/Vaping Use: Never Used service: No Current occupational status: retired Sexual orientation: Straight/Heterosexual Gender identity: Female Cognitive needs: No Hearing needs: No Vision needs: Yes Questionnaire PHQ-9 Over the last 2 weeks, how often have you been bothered by any of the following problems? 1. Little interest or pleasure in doing things: not at all 2. Feeling down, depressed, or hopeless: not at all 3. Trouble falling or staying asleep, or sleeping too much: not at all 4. Feeling tired or having little energy: not at all 5. Poor appetite or overeating: not at all 6. Feeling bad about yourself - or that you are a failure or have let yourself or your family down: not at all 7. Trouble concentrating on things, such as reading the newspaper or watching television: not at all 8. Moving or speaking so slowly that other people could have noticed. Or the opposite - being so fidgety or restless that you have been moving around a lot more than usual: not at all 9. Thoughts that you would be better off or of hurting yourself in some way: not at all Total score: 0 Depression Screening Interpretation: Negative Depression Screening Done: Yes Source: Developed by Drs. Brad Boudreaux, Celina Maldonado, Brice Tse and colleagues, with an educational amanda from [employer]. Thrive Questionnaire Date Thrive assessed: 10/09/24 I am a: Patient What is your living situation today?: I have a steady place to live Within the past 12 months, did the food you bought not last and you didn't have the money to get more?: Never true Within the past 12 months, did you worry whether your food would run out before you got money to buy more?: Never true Do you have trouble paying for medicines?: No Do you have trouble getting transportation to medical appointments?: No Do you have trouble paying your heating and electricity bill?: No Do you have trouble taking care of your child, family member or friend?: No Do you have trouble with day-to-day activities such as bathing, preparing meals, shopping, managing finances, etc.?: No Are you currently unemployed and looking for a job?: No Are you interested in more education?: No Please select the resources that you would like help with: None Currently or been in a relationship where the following occur: No concerns reported THRIVE Score: 0 AUDIT C Alcohol Use Questionnaire (AUDIT-C) 1. How often do you have a drink containing alcohol?: 2-4 times a month 2. How many drinks containing alcohol do you have on a typical day when you are drinking?: 1 or 2 3. How often do you have six or more drinks on one occasion?: Never Total Score: 2 YOU-7 AMB Questionnaire YOU-7 Date YOU - 7 assessed: 04/20/24 Feeling nervous, anxious, or on edge: 0 = Not at all Not being able to stop or control worryin = Not at all Worrying too much about different things: 0 = Not at all Trouble relaxin = Not at all Being so restless that it is hard to sit still: 1 = Several days Becoming easily annoyed or irritable: 0 = Not at all Feeling afraid as if something awful might happen: 0 = Not at all Total YOU-7 score (0-4 normal; 5-9 mild; 10-14 moderate; 15-21 severe): 1 Source: Developed by Drs. Brad Boudreaux, Celina Maldonado, Brice Tse and colleagues, with an educational amanda from [employer]. Review of Systems Const Denies fatigue, Denies fever(s), Denies headache(s) and Denies weakness Eyes Denies change in vision ENT Denies dizziness, Denies headache(s), Denies nasal discharge and Denies sore throat Card Denies chest pain, Denies lightheadedness, Denies palpitations and Denies dyspnea Resp Denies chest congestion, Denies cough, Denies dyspnea and Denies wheezing GI Denies abdominal pain, Denies change in bowel habits and Denies heartburn Denies hematuria, Denies urinary frequency, Denies dysuria and Denies urinary urgency Musc Details: Good outcome from bilateral knee replacement surgery Denies myalgias, Denies deformity, Denies joint swelling and Reports stiffness Skin/Breast Reports as per HPI, Denies breast pain, Denies breast mass, Denies lesions and Denies rash Neuro Denies dizziness, Denies headache(s) and Denies weakness Psych Reports as per HPI Endo Denies fatigue, Denies polydipsia, Denies polyuria and Denies palpitations Mike/Lymph Denies easy bruising Aller/Immun Reports seasonal rhinorrhea and Denies wheezing Physical exam (Primary Care) Vital Signs: Last Vital Signs Temp 97.9 F 10/12/24 09:04 Pulse 69 10/12/24 09:04 Resp 16 10/12/24 09:04 BP 132/74 10/12/24 09:04 Pulse Ox 98 10/12/24 09:04 Oxygen Delivery Method Room Air 10/12/24 09:04 BMI result Body Mass Index 41.0 BMI Assessment/Plan discussion: High BMI High, discussed plan: lifestyle, weight reduction, dietary and physical activity Tobacco/Smoking Status: Tobacco use Status Tobacco use date assessed 10/12/24 10/12/24 09:08 Patient Tobacco Use Status Former Tobacco user 10/12/24 09:08 e-Cigarette/Vaping Use Never Used 10/12/24 09:08 PHQ-9: PHQ-9 Score PHQ-9: Total score 0 10/12/24 15:17 Depression Screening Interpretation: Negative Thrive Assessment: Date of Thrive Assessment Date Thrive assessed 10/09/24 10/12/24 09:08 Currently or been in a relationship where the following occur: No concerns reported Const General: comfortable, no acute distress and alert Nutritional Appearance: obese morbidly obese Orientation/consciousness: patient oriented x3 HENMT Head: Yes atraumatic Ears: external ears normal General nose exam: Normal external nose present and No nasal discharge present Face and sinus: Yes face symmetric Mouth: oropharynx normal and moist mucous membranes Eyes General: appearance normal, both eyes and all related structures Neck Neck: Yes normal visual inspection, Yes full ROM, Yes no lymphadenopathy and Yes supple Thyroid: Thyroid normal Chest Breast/axilla palpation: normal palpation of the breasts Resp Effort & Inspection: normal respiratory effort and able to speak in complete sentences Auscultation: clear to auscultation bilaterally Cardio Rate: regular rate Rhythm: regular rhythm Heart sounds: S1 normal heart sound present, S2 normal heart sound present and Murmur heart sound present systolic GI Inspection: Yes obesity Palpation (GI): Soft to palpation, nontender, no guarding and no masses Auscultation: normal bowel sounds Other: [facility] [facility], with last Pap smear done in 2022 showing no evidence of malignancy, negative HPV Back/Spine/Pelvis Cervical Spine: cervical ROM normal Thoracic/Lumbar Spine: thoraco-lumbar ROM normal Skin General skin exam: no rashes or lesions noted Hair: general thinning Neuro General: patient oriented x3, gait normal, tone normal, moves all extremities, Normal light touch and pain sensation, no focal motor deficits and CN's II-XI intact bilaterally Cognition (Neuro): normal cognition Extrem General: Yes full ROM, Yes no joint enlargement, Yes no pedal edema, Yes no calf tenderness and Yes normal gait Psych Appearance: grossly normal and well kempt Mental Status: mental status grossly normal Speech and movement: Normal speech and movement present Affect: normal affect Coding Level of Care Code Est Pt Prev Care 40-64y(29193) Diagnoses Annual visit for general adult medical examination with abnormal findings Z00.01 Essential hypertension I10 Morbid obesity E66.01 Osteoarthritis of knees, bilateral M17.0 Environmental and seasonal allergies J30.89 Mixed dyslipidemia E78.2 Encounter for counseling regarding advance directives Z71.89 MENON (dyspnea on exertion) R06.09 Heart murmur, systolic R01.1 Assessment & Plan Assessment & Plan (1) Annual visit for general adult medical examination with abnormal findings: Code(s): Z00.01 - Encounter for general adult medical examination with abnormal findings (2) Essential hypertension: Code(s): I10 - Essential (primary) hypertension Category: Medical (3) Morbid obesity: Code(s): E66.01 - Morbid (severe) obesity due to excess calories Category: Medical (4) Osteoarthritis of knees, bilateral: Code(s): M17.0 - Bilateral primary osteoarthritis of knee Category: Medical (5) Environmental and seasonal allergies: Code(s): J30.89 - Other allergic rhinitis Category: Medical (6) Mixed dyslipidemia: Code(s): E78.2 - Mixed hyperlipidemia Category: Medical (7) Encounter for counseling regarding advance directives: Code(s): Z71.89 - Other specified counseling (8) MENON (dyspnea on exertion): Code(s): R06.09 - Other forms of dyspnea Category: Medical (9) Heart murmur, systolic: Code(s): R01.1 - Cardiac murmur, unspecified Plan The management plan includes continued use of albuterol for Reactive Airway Disease, supported by regular dermatology assessments scheduled following previous carcinoma diagnoses. Up-to-date with her cervical cancer screening, done [address] [facility] with negative findings. Up-to-date with her mammogram screening, and screening colonoscopy done by Dr. Fuentes in 2023 with hyperplastic polyp removed, repeat in 2033. The patient remains on vitamin D supplementation, aimed at sustaining adequate levels confirmed by lab tests. Monitoring and evaluation of pre- diabetic and hyperlipidemia will take place through bi-annual blood work. She is referred to cardiology for the heart murmur heard, particularly given her reported exertional dyspnea. Ongoing preventive screening includes a mammogram and bone density scans, accompanied by updating shingles and pneumonia vaccinations as appropriate. Patient was informed and verbally consented to the use of an ambient scribe for clinic note documentation during this visit. Orders: Orders XR DEXA axial skeleton 10/12/24 Z78.0 - Asymptomatic menopausal state Alanine Aminotransferase 10/12/24 E66.01 - Morbid (severe) obesity due to excess calories, E78.2 - Mixed hyperlipidemia, I10 - Essential (primary) hypertension, J30.89 - Other allergic rhinitis, M17.0 - Bilateral primary osteoarthritis of knee, N95.1 - Menopausal and female climacteric states, Z00.01 - Encounter for general adult medical examination with abnormal findings, Z71.89 - Other specified counseling, Z78.0 - Asymptomatic menopausal state Vitamin D 25-OH Total 10/12/24 E66.01 - Morbid (severe) obesity due to excess calories, E78.2 - Mixed hyperlipidemia, I10 - Essential (primary) hypertension, J30.89 - Other allergic rhinitis, M17.0 - Bilateral primary osteoarthritis of knee, N95.1 - Menopausal and female climacteric states, Z00.01 - Encounter for general adult medical examination with abnormal findings, Z71.89 - Other specified counseling, Z78.0 - Asymptomatic menopausal state TSH reflex Free T4 10/12/24 E66.01 - Morbid (severe) obesity due to excess calories, E78.2 - Mixed hyperlipidemia, I10 - Essential (primary) hypertension, J30.89 - Other allergic rhinitis, M17.0 - Bilateral primary osteoarthritis of knee, N95.1 - Menopausal and female climacteric states, Z00.01 - Encounter for general adult medical examination with abnormal findings, Z71.89 - Other specified counseling, Z78.0 - Asymptomatic menopausal state Aspartate Amino Transferase 10/12/24 E66.01 - Morbid (severe) obesity due to excess calories, E78.2 - Mixed hyperlipidemia, I10 - Essential (primary) hypertension, J30.89 - Other allergic rhinitis, M17.0 - Bilateral primary osteoarthritis of knee, N95.1 - Menopausal and female climacteric states, Z00.01 - Encounter for general adult medical examination with abnormal findings, Z71.89 - Other specified counseling, Z78.0 - Asymptomatic menopausal state Basic Metabolic Panel Fasting 10/12/24 E66.01 - Morbid (severe) obesity due to excess calories, E78.2 - Mixed hyperlipidemia, I10 - Essential (primary) hypertension, J30.89 - Other allergic rhinitis, M17.0 - Bilateral primary osteoarthritis of knee, N95.1 - Menopausal and female climacteric states, Z00.01 - Encounter for general adult medical examination with abnormal findings, Z71.89 - Other specified counseling, Z78.0 - Asymptomatic menopausal state Lipid Panel 10/12/24 E66.01 - Morbid (severe) obesity due to excess calories, E78.2 - Mixed hyperlipidemia, I10 - Essential (primary) hypertension, J30.89 - Other allergic rhinitis, M17.0 - Bilateral primary osteoarthritis of knee, N95.1 - Menopausal and female climacteric states, Z00.01 - Encounter for general adult medical examination with abnormal findings, Z71.89 - Other specified counseling, Z78.0 - Asymptomatic menopausal state Referrals Cardiology Referral R06.09 - Other forms of dyspnea
--- OUTSIDE RECORDS SUMMARY | 2024-10-12 09:38 | XMS_ITS | Patient Health Record ---
Author Organization [facility] [place] Address [address] [place] [address] Care Team Providers Care Fish And Game Club Manager Name Role Phone Jelani MUSE, Antonietta Segovia Primary Care Provider Un available Thom Wolff Unavailable [phone] Allergies No Known Allergies Reason For Referral No Information Medications Medication SIG (Take, Route, Fr equency, Duration) Notes Start Date End Date Status Albuterol PRN Active Lisinopril 5 MG 1 tablet Orally Once a day for 30 day(s) Active Immunizations Vaccine Route Administration Date Status Comme nts COVID-19 Moderna Vaccine Unknown 08/20/2021 Administered 1st 11/10/2020 2nd 12/08/2020 Social History Tobacco Use: Social History Observation Description Date Details (start date - stop date) Former Smoker NA - NA Tobacco Use/Smoking Question Answer Notes Are you a: former smoker Additional Findings: Tobacco Non-User Current no n-smoker Alcohol Screen Question Answer Notes Did you have a drink containing alcohol in the p ast year? Yes Points 0 Interpretation Negative Tobacco use other than smoking: Question Answer Notes Are you an other tobacco user? No Problems Problem Type SNOMED Code ICD Code Onset Dates Problem Status W/U Status Risk Notes Problem Plantar wart (55472007) Plantar wart (B07.0) Active confirmed Plan Of Treatment Pending Test Test Name Order Date 26041-Tssc Destruction, 1-14 10/22/2021 Insurance Providers Payer Name Payer Address Payer Phone Subscriber Number Group Number Insured Name Patient Relationship to Insured Coverage Start Date Coverage End Date [facility] [address] [facility] [place] [id number] Rebecca Simon Self - patient is the insured Medical (General) History Medical History History ICD Code osteoarthritis Knee Pain Skin Cancer Headaches/Migraines High blood pressure Chicken pox Bone implants/screws knee Surgical History Surgery Date(Month/Year) right knee replacement 09/22/2019
--- OUTSIDE RECORDS SUMMARY | 2024-10-12 09:38 | XMS_ITS ---
Author Organization [facility] Address [address] [place] [address] Care Team Providers Care Offset Printing Pressmen Name Role Phone Jelani MUSE, Antonietta Primary Care Provider Brad Quintanilla [phone] REASON FOR VISIT screening Encounters Encounter Location Date Provider [place] [facility] [facility] [place] [address] [place], [place] [phone] 05/13/2023 Brad Fuentes PLAN OF TREATMENT No Information
--- OUTSIDE RECORDS SUMMARY | 2024-10-12 09:39 | XMS_ITS | Patient Health Record ---
Author Organization [facility] Address [address] [place] [address] Care Team Providers Care Scoring Machine Operator Name Role Phone Jelani MUSE, Antonietta Primary Care Provider Brad Quintanilla Unavailable [phone] ALLERGIES Allergen (clinical drug ingredient) Drug/Non Drug Allergy documented on EMR Reaction Allergy Type Onset Date Status zolmitriptan Zomig Unknown Drug Allergy Acti ve REASON FOR REFERRAL No Information MEDICATIONS Medication SIG (Take, Route, Fr equency, Duration) Notes Start Date End Date Status Albuterol Active Omeprazole 20 MG 1 capsule 30 minutes before morning meal Orally otc prn Active Lisinopril 10 MG 1 tablet Orally Once a day Active SOCIAL HISTORY Sex Assigned At : Social History Observation Description Sex Assigned At Unknown Alcohol Screen Question Answer Notes Did you have a drink contain ing alcohol in the past year? Yes How often did you have a dri nk containing alcohol in the past year? 2 to 4 times a month (2 points) How many drinks did you have on a typical day when you were drinking in the past year? 1 or 2 drinks (0 point) How often did you have 6 or more drinks on one occasion in the past year? Less than monthly (1 point) Points 3 Interpretation Positive PROBLEMS Problem Type ICD Code Onset Dates Problem Status W/U Status Risk SNOMED Code Notes Problem Colon cancer screening (Z12.11) Active confirmed 509716147 Problem Diverticulosis of large intestine without perforation or abscess without bleeding (K57.30) Active confirmed Diverticul ar disease of colon (250584046) Problem Gastroesophageal reflux disease without esophagitis (K21.9) Active confirmed 952850855 Problem Preprocedural examination (Z01.818) Active confirmed 115731455051507 Problem Fatty liver (K76.0) Active confirmed 19 [id number] Encounters Encounter Location Date Provider Diagnosis [facility] [place] [address], [place] [phone] 05/18/2024 Brad Fuentes Colon cancer screeni ng Z12.11 ; Diverticulosis of large intestine without perforation or abscess without bleeding K57.30 and Other hemorrhoids K64.8 [facility] [address] [place] [address] 12/01/2023 Brad Fuentes ASSESSMENTS Encounter Date Diagnosis Assessment Notes Treatment Notes Treatment Clinical Notes 05/18/2024 Colon cancer screening (ICD-10 - Z12.11) 05/18/2024 Diverticulosis of large intestine without perforation or abscess without bleeding (ICD-10 - K57.30) 05/18/2024 Other hemorrhoids (ICD-10 - K64.8) PLAN OF TREATMENT Pending Test Test Name Order Date LIVER PROFILE 10/15/2011 LIVER PROFILE 02/16/2012 LIVER PROFILE 11/17/2012 IRON + IBC (FE) 10/15/2011 FERRITIN 10/15/2011 HEPATITIS A,B,C PROFILE 10/15/2011 MITOCHONDRIAL AB 10/15/2011 SMOOTH MUSCLE ANTIBODIES 10/15/2011 FLUOR. ANTINUCLEAR AB SCREEN (ROSEMARIE) 09/2011 Future Test Test Name Order Date COLONOSCOPY 10/15/2011 COLONOSCOPY 02/12/2023 Insurance Providers Payer Name Payer Address Payer Phone Subscriber Number Group Number Insured Name Patient Relationship to Insured Coverage Start Date Coverage End Date [facility] [address] [place] [phone] [id number] ISIAH SYED Self - patient is the insured MEDICAL (GENERAL) HISTORY Medical History History ICD Code Screening colonoscopies 1999 , 02-18-2005 and 12/2011 with only hyperplastic polyps GERD-EGD in 09/2000 with mini mal HH and no sig. esophagitis, gastric bx. neg for H.pylori Denies [place],DM,CVA,Lung disease,renal dise ase Hyperlipidemia Mild fatty liver with neg. w/u in 10/2011 , and just mildly elevated LFT's Seasonal allergies Hypertension Surgical History Surgery Date(Month/Year) Knee replacement on the right 2019 Future left knee replacement later in Skin cancers on scalp, lip, and back
--- OUTSIDE RECORDS SUMMARY | 2024-10-12 09:40 | XMS_ITS ---
Author Organization [facility] Address [address] [place] [address] Care Team Providers Care Industrial Pipefitter Journeyman Name Role Phone Jelani MUSE, Antonietta Primary Care Provider Brad Quintanilla [phone] REASON FOR VISIT reschedule colonoscopy Encounters Encounter Location Date Provider Diagnosis [facility] [address] [place] [address] 12/01/2023 Brad Fuentes PLAN OF TREATMENT No Information
== END 2024-10-12 10:45 | disposition home or self-care (01) ==
PROVIDERS: PCP Internal Medicine; Visit Provider Internal Medicine
DX: Z00.00 Encounter for general adult medical examination without abnormal findings (principal); I10 Essential (primary) hypertension; E66.01 Morbid (severe) obesity due to excess calories; Z68.41 Body mass index [BMI] 40.0-44.9, adult; M17.0 Bilateral primary osteoarthritis of knee; J30.89 Other allergic rhinitis; E78.2 Mixed hyperlipidemia; Z71.89 Other specified counseling; R06.09 Other forms of dyspnea; R01.1 Cardiac murmur, unspecified

== ENCOUNTER 2025-01-30 08:15 | Outpatient (REF) | payer OTHER, SELFPAY ==
--- OUTSIDE RECORDS SUMMARY | 2025-01-30 08:19 | XMS_ITS ---
Author Organization [facility] Address [address] [place] [address] Care Team Providers Care Inside Steward/Stewardess Name Role Phone Jelani MUSE, Antonietta Primary Care Provider Brad Quintanilla [phone] REASON FOR VISIT reschedule colonoscopy Encounters Encounter Location Date Provider Diagnosis [facility] [address] [place] [address] 12/01/2023 Brad Fuentes Plan Of Treatment No Information Progress Notes * ISIAH SYED MDOB:1960 ( 63 yo F)Acc No.[id number]:12/01/2023 Patient:?ISIAH SYED :1960???Age:63 Y???Sex:Female Address:[address] [place] [address] [address] , [place] [id number] * true * Date:? Generated for Darryni junior/Makeda/eTransmitting on:?01/30/2025 08:19 AM EDT
--- OUTSIDE RECORDS SUMMARY | 2025-01-30 08:19 | XMS_ITS | Patient Health Record ---
Author Organization [facility] Address [address] [facility] [place] [address] Care Team Providers Care Display Fabrication Supervisor Name Role Phone Jelani MUSE, Antonietta Segovia Primary Care Provider Un available Thom Wolff Unavailable [phone] Allergies No Known Allergies Reason For Referral [...] W/U Status Risk Notes Problem Plantar wart (24563502) Plantar wart (B07.0) Active confirmed Plan Of Treatment Pending Test Test Name Order Date [id number] Destruction, 1-14 10/22/2021 Insurance Providers Payer Name Payer Address Payer Phone Subscriber Number Group Number Insured Name Patient Relationship to Insured Coverage Start Date Coverage End Date [facility] [address] [facility] [place] [id number] Rebecca Simon Self - patient is the insured Medical (General) History Medical History History ICD Code osteoarthritis Knee Pain Skin Cancer Headaches/Migraines High blood pressure Chicken pox Bone implants/screws knee Surgical History Surgery Date(Month/Year) right knee replacement 09/22/2019
--- OUTSIDE RECORDS SUMMARY | 2025-01-30 08:19 | XMS_ITS ---
Author Organization [facility] Address [address] [place] [address] Care Team Providers Care Deputy Sheriff Generalist/Bailiff Name Role Phone Jelani MUSE, Antonietta Primary Care Provider Brad Quintanilla [phone] REASON FOR VISIT screening colon Problems Problem Type SNOMED Code ICD Code Onset Dates Problem Status W/U Status Risk Notes Problem Diverticulosis o f large intestine without perforation or abscess without bleeding (K57.30) Active confirmed Encounters Encounter Location Date Provider Diagnosis [facility] Out[facility] [address], [place] [phone] 05/18/2024 Brad Fuentes Colon cancer scree annmarie Z12.11 ; Diverticulosis of large intestine without perforation or abscess without bleeding K57.30 and Other hemorrhoids K64.8 Assessments Encounter Date Diagnosis (ICD Code) Assessment Notes Treatment Notes Treatment Clinical Notes Section Notes 05/18/2024 Colon cancer screening (ICD-10 - Z12.11) 05/18/2024 Diverticulosis of large intestine without perforation or abscess without bleeding (ICD-10 - K57.30) 05/18/2024 Other hemorrhoids (ICD-10 - K64.8) Plan Of Treatment No Information Progress Notes * ISIAH SYED MDOB:1960 ( 64 yo F)Acc No.[id number]:05/18/2024 COLON WITH MAC Patient:?ISIAH SYED Provider:?Brad Fuentes MD :1960???Age:63 Y???Sex:Female D ate:05/18/2024 Address:[address] [place] [address] , [id number] Pcp:Antonietta Palomares MD Subjective: * Chief Complaints: * ???1. Screening colon. * Medical History:? Objective: * Vitals:? Assessment: * Assessment: 1.?Colon cancer screening - Z12.11 (Primary)???2.?Diverticulosis of large intestine without perforation or abscess without bleeding - K57.30???3.?Other hemorrhoids - K64.8??? Plan: * Treatment: * Procedure Codes:?04258 DIAGN OSTIC COLONOSCOPY * * The named appointment provid er may or may not be the originator of this progress note, and it is not deemed complete until electronically signed by the appointment provider. Sign off status: Pending * Provider:?Brad Fuentes MD Date:? 024 Generated for Mitra pacheco/Makeda/Kokoitting on:?01/30/2025 08:19 AM EDT
--- OUTSIDE RECORDS SUMMARY | 2025-01-30 08:19 | XMS_ITS | Patient Health Record ---
Author Organization [facility] Address [address] [place] [address] Care Team Providers Care Applique Sewer Name Role Phone Jelani MUSE, Antonietta Primary Care Provider Brad Quintanilla Unavailable [phone] Allergies Allergen (clinical drug ingredient) Drug/Non Drug Allergy documented on EMR Reaction Allergy Type Onset Date Status zolmitriptan Zomig Unknown Drug Allergy Acti ve Reason For Referral No Information Medications Medication SIG (Take, Route, Fr equency, Duration) Notes Start Date End Date Status Albuterol Active Omeprazole 20 MG 1 capsule 30 minutes before morning meal Orally otc prn Active Lisinopril 10 MG 1 tablet Orally Once a day Active Social History Alcohol Screen Question Answer Notes Did you [...] monthly (1 point) Points 3 Interpretation Positive Section Notes: Former smoker, and alcohol a s above Former smoker, and alcohol a s above Nonsmoker x 20 yrs; occasion al alcohol on weekend Nonsmoker x 20 yrs; occasion al alcohol on weekend Problems Problem Type SNOMED Code ICD Code Onset Dates Problem Status W/U Status Risk Notes Problem 270265762 Colon cancer screening (Z12.11) Active confirmed Problem Diverticular disease of colon (569081841) Diverticulosis of large intestine without perforation or abscess without bleeding (K57.30) Active confirmed Problem 577596591 Gastroesophageal reflux disease without esophagitis (K21.9) Active confirmed Problem 357896665916497 Preprocedural examination (Z01.818) Active confirmed Problem 922596649 Fatty liver (K76.0) Active confirmed Encounters Encounter Location Date Provider Diagnosis [facility] Outpatient [address] [place] [phone] 05/18/2024 Brad Fuentes Colon cancer scree annmarie [...] hemorrhoids (ICD-10 - K64.8) Plan Of Treatment Pending Test Test Name Order Date LIVER PROFILE 10/15/2011 LIVER PROFILE 11/17/2012 LIVER PROFILE 02/16/2012 IRON + IBC (FE) 10/15/2011 FERRITIN 10/15/2011 HEPATITIS A,B,C PROFILE 10/15/2011 MITOCHONDRIAL AB 10/15/2011 SMOOTH MUSCLE ANTIBODIES 10/15/2011 FLUOR. ANTINUCLEAR AB SCREEN (ROSEMARIE) 09/2011 Future Test Test Name Order Date COLONOSCOPY 10/15/2011 COLONOSCOPY 02/12/2023 Insurance Providers Payer Name Payer Address Payer Phone Subscriber Number Group Number Insured Name Patient Relationship to Insured Coverage Start Date Coverage End Date [facility] [address] [place] [phone] [id number] ISIAH SYED Self - patient is the insured Medical (General) History Medical History History ICD Code Screening colonoscopies 1999 , 02-18-2005 and 12/2011 with only hyperplastic polyps GERD-EGD in 09/2000 with mini mal HH and no sig. esophagitis, gastric bx. neg for H.pylori Denies AR,DM,CVA,Lung disease,renal dise ase Hyperlipidemia Mild fatty liver with neg. w/u in 10/2011 , and just mildly elevated LFT's Seasonal allergies Hypertension Surgical History Surgery Date(Month/Year) Knee replacement on the right 2019 Future left knee replacement later in 20 23 Skin cancers on scalp, lip, and back
[2025-01-30 11:12] LABS: Alanine Aminotransferase 64 U/L (0-31); Anion Gap 11 (12-20); Aspartate Amino Transferase 61 U/L (5-31); Blood Urea Nitrogen 14 mg/dL (9-16); Calcium 9.3 mg/dL (8.4-10.2); Carbon Dioxide 28 mmol/L (22-29); Chloride 105 mmol/L (96-108); Cholesterol 199 mg/dL (<200); Estimated Glomerular Filt Rate > 60; Glucose Fasting 115 mg/dL (60-99); HDL Cholesterol 36 mg/dL (>40); LDL Cholesterol Calculated 130 mg/dL (<100); Sodium 140 mmol/L (135-145); TSH reflex Free T4 2.51 uIU/mL (0.32-4.0); Triglycerides 165 mg/dL (<150); Vitamin D 25-OH Total 40.9 ng/mL (>30)
== END 2025-01-30 08:16 | disposition home or self-care (01) ==
LOC: HO.HMGCLDS 08:15
PROVIDERS: PCP Internal Medicine; Visit Provider Internal Medicine
DX: Z00.01 Encounter for general adult medical examination with abnormal findings (principal); E78.2 Mixed hyperlipidemia; J30.89 Other allergic rhinitis; M17.0 Bilateral primary osteoarthritis of knee; E66.01 Morbid (severe) obesity due to excess calories; I10 Essential (primary) hypertension; Z71.89 Other specified counseling; Z78.0 Asymptomatic menopausal state
CPT/HCPCS: 36415; 80048; 80061; 82306; 84443; 84450; 84460

== ENCOUNTER 2025-02-22 09:19 | Outpatient (AMB) | payer OTHER, SELFPAY ==
--- NOTE | 2025-02-22 09:23 | A.OFFVIS_ITS ---
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 It seems that a couple of years ago she had an echocardiogram that showed aortic and mitral valve calcification. Patient herself does not have any history of coronary disease or myocardial infarction or cardiomyopathy extra. She does not get any clear-cut anginal-type chest p ains but she states she gets short of breath with activity like walking up inclines, going upstairs extra. She also feels some lightheadedness when she is getting up from seated position that indicates orthostatic dizziness. Per meds, she is on lisinopril for hypertension. She is overweight. Also has allergies/history of asthma. [facility] Medical History (Updated 02/22/25 @ 09:59 by Nicola Iyer MD) MENON (dyspnea on exertion) History of basal cell cancer Hyperlipidemia Seasonal allergies Skin cancer Elevated liver enzymes GERD (gastroesophageal reflux disease) Fatty liver Mixed dyslipidemia Environmental and seasonal allergies Menopause syndrome Osteoarthritis of knees, bilateral Vitamin D deficiency Morbid obesity Essential hypertension Surgical History (Updated 10/16/24 @ 16:13 by Antonietta Palomares MD) History of Mohs surgery for squamous cell carcinoma of skin History of esophagogastroduodenoscopy (EGD) History of total right knee replacement History of arthroplasty of right knee Hx of colonoscopy Family History (Updated 05/27/24 @ 11:33 by Elis Calabrese RN) Maternal Aunt Mental health disorder History of breast cancer Maternal Grandfather Mental health disorder Father COPD (chronic obstructive pulmonary disease) CHF (congestive heart failure) Mother Hypertension Cancer Social History Housing: House Are you a primary cna caregiver to a significant other at home: No Do you presently have visiting nurse or other home services: No Alcohol intake: current Alcohol intake frequency: a few times a month Patient Tobacco Use Status: Former Tobacco user e-Cigarette/Vaping Use: Never Used service: No Current occupational status: retired Sexual orientation: Straight/Heterosexual Gender identity: Female Cognitive needs: No Hearing needs: No Vision needs: Yes Review of Systems Const Denies chills, Denies daytime sleepiness, Denies fatigue, Denies fever(s), Denies frequent falls, Denies poor appetite, Denies snoring, Denies stops breathing during sleep, Denies weakness, Denies weight gain and Denies weight loss Eyes Denies loss of vision ENT Denies dizziness and Denies hearing loss Card Denies chest pain, Denies claudication, Denies leg edema, Denies lightheadedness, Denies palpitations, Denies dyspnea, Denies dyspnea on exertion and Denies orthopnea Resp Denies cough, Denies excessive phlegm production, Denies dyspnea, Denies dyspnea on exertion, Denies snoring and Denies wheezing GI Denies abdominal pain, Denies hematochezia, Denies change in bowel habits, Denies nausea and Denies vomiting Denies urinary frequency and Denies dysuria Musc Denies arthralgias, Denies muscle weakness, Denies numbness and Denies other (frequent falls) Skin/Breast Denies nail changes and Denies rash Neuro Denies Abnormal speech present, Denies dizziness, Denies frequent falls, Denies loss of vision, Denies memory loss, Denies numbness and Denies weakness Psych Denies depression and Denies memory loss Endo Denies fatigue and Denies palpitations Mike/Lymph Reports easy bruising and Reports other (anemia) Aller/Immun Denies wheezing Physical Exam Vital Signs: Last Vital Signs Pulse 66 02/22/25 09:24 BP 128/80 02/22/25 09:24 BMI result Body Mass Index 41.0 Const General: comfortable and no acute distress Orientation/consciousness: patient oriented x3 HEENT Other: Unremarkable Head: Yes normal to inspection Neck Neck: Yes normal visual inspection Chest Chest palpation & inspection: normal inspection of the chest Resp Auscultation: clear to auscultation bilaterally Cardio Palpation: normal PMI Heart sounds: S1 normal heart sound present, S2 normal heart sound present, no gallops, Murmur heart sound present systolic III/ and at the right sternal border and no rubs GI Palpation (GI): Soft to palpation Back/Spine/Pelvis Other: unremarkable Skin General skin exam: no rashes or lesions noted Neuro General: patient oriented x3 Speech: No Abnormal speech present Extrem General: Yes normal to inspection Psych Mental Status: mental status grossly normal Office Procedures EKG Details: EKG with underlying sinus rhythm at 66/Min; no significant ST-T changes; [place] [address]-Nshrccchpbigcntdn, Complete Assessment & Plan Assessment & Plan (1) MENON (dyspnea on exertion): Code(s): R06.09 - Other forms of dyspnea Category: Medical (2) Essential hypertension: Code(s): I10 - Essential (primary) hypertension Category: Medical (3) Aortic valve calcification: Code(s): I35.9 - Nonrheumatic aortic valve disorder, unspecified Category: Medical (4) Mitral annular calcification: Code(s): I34.81 - Nonrheumatic mitral (valve) annulus calcification Category: Medical Plan Echocardiogram from 2022-hyperdynamic LVEF, mild aortic valve calcification with moderate mitral annular calcification. Findings discussed with patient. There could be some progression of valvular findings from 2022 but doubt if that is going to actually make her short of breath unless she has developed mitral stenosis. She needs a repeat echocardiogram. Considering her weight and echocardiographic findings, she also needs evaluation for ischemic heart disease. Hence obtain exercise stress perfusion imaging study. With regard to orthostatic dizziness, seems somewhat mild. To take adequate precautions while getting up from seated position. If continues, may need to cut back on lisinopril. Follow-up after the above testing. Discussion Notes I discussed the current understanding of the patient's heart murmur, emphasizing that its variable detection can relate to clinician experience rather than severity. I explained the importance of repeat echocardiography to evaluate valve calcification progression. The potential need for a stress test post- echocardiogram was outlined, contingent on valve function findings. I detailed management of orthostatic hypotension with possible medication adjustments and emphasized lifestyle changes for asthma control. The patient understood and agreed to proceed with the diagnostic plan, aware of the implications and need for follow-up post-assessment. Patient was informed and verbally consented to the use of an ambient scribe for clinic note documentation during this visit. Orders: Orders NM cardiolite stress test Today Nicola Iyer MD R06.09 - Other forms of dyspnea, R07.2 - Precordial pain CA echo transthoracic complete Today Nicola Iyer MD R06.09 - Other forms of dyspnea CA stress test Today Nicola Iyer MD R06.09 - Other forms of dyspnea, R07.2 - Precordial pain Medications: Changed From fluticasone propionate 50 mcg/actuation administer into each nostril 2 sprays intranasal DAILY 16 grams 1RF To fluticasone propionate 50 mcg/actuation administer into each nostril 2 sprays intranasal DAILY PRN Antonietta Palomares MD Patient Instructions: - Schedule and complete the echocardiogram as directed. - Be cautious when standing up quickly; rise slowly to prevent dizziness. - Continue taking your allergy medication as needed for asthma. - Monitor your symptoms when exerting yourself, and rest if winded. - Expect contact for scheduling follow-up appointments after your echocardiogram results are available. Coding Level of Care Code New Pt Level 4 (55218) Complex EM visit Add On G2211 Diagnoses MENON (dyspnea on exertion) R06.09 Essential hypertension I10 Aortic valve calcification I35.9 Mitral annular calcification I34.81 CPT Codes EKG - CPT: 06576-Qkulpdkghxhhhcrzl, Complete ([id number])
[2025-02-22 09:24] VITALS: BP 128/80; PULSE 66; BMI 41.0
--- OUTSIDE RECORDS SUMMARY | 2025-02-22 10:02 | XMS_ITS | Patient Health Record ---
Author Organization [facility] [place] Address [address] [facility] [place] [address] Care Team Providers Care Bend Up Name Role Phone Jelani MUSE, Antonietta Segovia Primary Care Provider Un available Thom Wolff Unavailable [phone] Allergies No Known Allergies Reason For Referral [...] W/U Status Risk Notes Problem Plantar wart (78337669) Plantar wart (B07.0) Active confirmed Plan Of Treatment Pending Test Test Name Order Date [id number] Destruction, 1-14 10/22/2021 Insurance Providers Payer Name Payer Address Payer Phone Subscriber Number Group Number Insured Name Patient Relationship to Insured Coverage Start Date Coverage End Date [facility] [address] [facility] [place] [address] [phone] [id number] Rebecca Simon Self - patient is the insured Medical (General) History Medical History History ICD Code osteoarthritis Knee Pain Skin Cancer Headaches/Migraines High blood pressure Chicken pox Bone implants/screws knee Surgical History Surgery Date(Month/Year) right knee replacement 09/22/2019
== END 2025-02-22 10:17 | disposition home or self-care (01) ==
LOC: HO.HCS 09:20
PROVIDERS: PCP Internal Medicine; Visit Provider Internal Medicine
DX: R06.09 Other forms of dyspnea (principal); I10 Essential (primary) hypertension; I35.9 Nonrheumatic aortic valve disorder, unspecified; I34.81 Nonrheumatic mitral (valve) annulus calcification
CPT/HCPCS: 93010; 99204; G2211

== ENCOUNTER → 2025-02-22 09:19 | Outpatient (BNVA) | payer OTHER, SELFPAY | PROVIDERS: PCP Internal Medicine; Visit Provider Internal Medicine | DX: R07.2 Precordial pain (principal); R06.09 Other forms of dyspnea; I10 Essential (primary) hypertension; I35.9 Nonrheumatic aortic valve disorder, unspecified; I34.81 Nonrheumatic mitral (valve) annulus calcification | CPT/HCPCS: 93005 ==

== ENCOUNTER 2025-02-23 10:29 | Outpatient (REF) | payer OTHER, SELFPAY ==
--- NOTE | ~2025-02-23 | MM_ITS ---
EXAMINATION: MM SCREENING DIGITAL BREAST TOMOSYNTHESIS, BILATERAL CLINICAL INFORMATION: Screening. Asymptomatic. COMPARISON: Mammography: Comparison is made with available priors TECHNIQUE: Digital breast mammography with tomosynthesis is performed in both the craniocaudal and mediolateral oblique views along with computer-aided detection (CAD). FINDINGS: There are scattered areas of fibroglandular density (ACR BI-RADS breast composition Category b). Bilateral benign secretory calcifications are stable. There are no significant masses, abnormal calcifications, or other abnormalities. MM/MM tomosynthesis screening BI IMPRESSION: No mammographic evidence of malignancy. ASSESSMENT: BI-RADS BI-RADS 2 - Benign Findings RECOMMENDATION: Routine annual mammography screening. 1 year F/U This examination should not preclude the clinical evaluation of a suspicious palpable abnormality. This patient's information was entered into a reminder system with a target due date for their next mammogram. Electronically signed by: Kimi Obando DO 03/03/2025 05:51 PM EDT
--- NOTE | ~2025-02-23 | MM_ITS ---
EXAMINATION: DXA BONE DENSITY AXIAL HISTORY: Z78.0 - Asymptomatic menopausal state TECHNIQUE: inEarth Dual energy absorptiometry (DEXA) of the lumbar spine, total left hip, and femoral neck was performed. COMPARISON: Comparison is made with the prior examination dated 12/09/2022. FINDINGS: The bone mineral density of the lumbar spine is 1.339, corresponding to a T-score of 1.3, and a Z-score of 1.7. This is indicative of normal bone mineral density. This represents a BMD change of 2.1% compared to the prior exam. This is not statistically significant. The bone mineral density of the left total hip is 1.091, corresponding to a T-score of 0.7, and a Z-score of 1.0. This is indicative of normal bone mineral density. This represents a BMD change of -2.1% compared to the prior exam. This is not statistically significant. The bone mineral density of the left femoral neck is 0.885, corresponding to a T-score of -1.1, and a Z-score of -0.4. This is indicative of osteopenia. This represents a BMD change of -6.1% compared to the prior exam. FRACTURE RISK: The FRAX index suggests a ten year probability of major osteoporotic fracture of 7.5%, and of hip fracture 0.5%. MM/XR DEXA axial skeleton IMPRESSION: Based on bone mineral density, and according to World Health Organization (WHO) criteria, the diagnosis is consistent with osteopenia. All bone density values are in grams per centimeter squared (g/cm2). Statistically, 68% of repeat scans fall within 1 SD (+/- 0.010 g/cm2 for AP spine L1-L4) and 1 SD (+/- 0.012 g/cm2 for femur total) FRAX is a trademark of the [employer], a World Health Organization (WHO) Collaborating Center. Electronically signed by: Brad Lance MD 02/23/2025 12:12 PM EDT
--- OUTSIDE RECORDS SUMMARY | 2025-02-23 12:13 | XMS_ITS | Patient Health Record ---
Author Organization [facility] [place] Address [address] [place] [address] Care Team Providers Care Etcher Machine Name Role Phone Jelani MUSE, Antonietta Segovia Primary Care Provider Un available Thom Wolff Unavailable [phone] Allergies No Known Allergies Reason For Referral [...] W/U Status Risk Notes Problem Plantar wart (04298049) Plantar wart (B07.0) Active confirmed Plan Of Treatment Pending Test Test Name Order Date [id number] Destruction, 1-14 10/22/2021 Insurance Providers Payer Name Payer Address Payer Phone Subscriber Number Group Number Insured Name Patient Relationship to Insured Coverage Start Date Coverage End Date [facility] [address] [facility] [place] [address] [id number] Rebecca Simon Self - patient is the insured Medical (General) History Medical History History ICD Code osteoarthritis Knee Pain Skin Cancer Headaches/Migraines High blood pressure Chicken pox Bone implants/screws knee Surgical History Surgery Date(Month/Year) right knee replacement 09/22/2019
== END 2025-02-23 10:30 | disposition home or self-care (01) ==
LOC: HO.MAMMO 10:29
PROVIDERS: PCP Internal Medicine; Visit Provider Internal Medicine
DX: Z12.31 Encounter for screening mammogram for malignant neoplasm of breast (principal); Z13.820 Encounter for screening for osteoporosis; Z78.0 Asymptomatic menopausal state
CPT/HCPCS: 77063; 77067; 77080

== ENCOUNTER → 2025-02-23 11:00 | Outpatient (BNV) | payer OTHER, SELFPAY | PROVIDERS: PCP Internal Medicine; Visit Provider Radiology Diagnostic Radiology | DX: E28.39 Other primary ovarian failure (principal) | CPT/HCPCS: 77080 ==

== ENCOUNTER → 2025-04-05 09:59 | Outpatient (REF) | payer OTHER, SELFPAY ==
--- NOTE | 2025-04-05 10:02 | CA_ITS ---
Transthoracic Echocardiogram Patient (Last, First, Middle): Rebecca Simon M Gender: Female Date of : 1960 Age: 64 Procedure Date: 04/05/2025 Procedure Type: Transthoracic Echocardiogram Location: OP Height: 167.64 cm Weight: 116.58 kg BSA: 2.23 m2 Heart Rate: bpm BP: 120 / 80 mmHg Bingo Clerk: JOSE Referring MD: Nicola Iyer MD Drum Sealer: Moises Cardoza MD Symptoms: R06.09 - Other forms of dyspnea Study Quality: Fair, contrast ECG Rhythm: Sinus Conclusions: - 1. Hyperdynamic LV ejection fraction greater than 70% with mild LVH with elevated filling pressures 2. Bzho-by-ckwhocdg aortic stenosis 3. Severe mitral annular calcification 4. No gross pericardial effusion Findings Procedure Information Contrast agent, definity, is being given per protocol without apparent complications. Left Ventricle Normal left ventricular cavity size. There is mildly increased left ventricular wall thickness. The left ventricular systolic function is hyperdynamic. The visually estimated ejection fraction is >70%. Spectral Doppler is indicative of an impaired relaxation filling pattern. Elevated filling pressures. E/E prime ratio is >15, consistent with elevated filling pressures. Right Ventricle Normal right ventricular cavity size and systolic function. Atria The left atrium is mildly dilated. There is no evidence of interatrial shunt. The right atrium is normal in size. Aortic Valve The aortic valve was not well visualized. There is mild to moderate aortic valve stenosis. The peak aortic gradient is 35 mmHg.The mean gradient is 22 mmHg. The aortic valve area is 1.48 cm2. There is no aortic valve regurgitation. Mitral Valve There is mild anterior and severe posterior mitral leaflet thickening. There is severe mitral annular calcification. There is trace mitral valve regurgitation. There is no mitral valve stenosis. Pulmonic Valve The pulmonic valve was not well visualized. Tricuspid Valve Likely normal tricuspid valve structure and function. Tricuspid regurgitation envelope is inadequate for calculation of right ventricular systolic pressure. Normal right atrial pressure. Great Vessels All visible segments of the aorta are normal in size. The pulmonary artery was not well visualized. There is no dilatation of the ascending aorta measuring 3.20 cm. Venous The inferior vena cava is normal in size and collapses greater than 50% with inspiration. Pericardium/Pleural There is no evidence of pericardial effusion. Prior Study Comparison Changes noted compared to prior study dated: 10/14/2022. [id number]-vb-cmpubsyt aortic stenosis is noted Measurements 2D Linear Measurements IVSd: 1.38 0.6-0.9/0.6-1.0 cm LVIDd: 4.60 3.9-5.3/4.2-5.9 cm LVIDd Index: 2.06 2.4-3.2/2.2-3.1 cm/m2 LVIDs: 3.35 2.0-3.6 cm LVPWd: 1.28 0.7-1.1 cm LA Diam: 4.30 2.7-3.8/3.0-4.0 cm LAIDs Index: 1.93 1.5-2.3 cm/m2 LV Mass: 313.41 67-162/88-224 g LV Mass Index: 140.54 43-95/49-115 g/m2 LVOT Diam: 2.00 3.0+(-)1.3 cm 2D Systolic Function EF 4C: 80.20 >55% EF 2C: 83.30 >55% EF BiP: 81.80 >55% Mitral Valve MV Pk E: 1.09 MV PK A: 1.05 MV Decel Time: 347.00 E/A: 1.00 E'Lateral: 7.72 E'Medial: 5.66 E/E' Med: 19.30 E/E' Lat: 14.10 PHT: 102.00 MVA PHT: 2.16 Decel [place]: 3.15 Aortic Valve AoV Pk Carlos Alberto: 2.96 AoV Mn Carlos Alberto: 2.20 AoV VTI: 0.68 AoV Pk Grad: 35.00 Aov Mn Grad: 22.00 LIAT Cont.VTI: 1.48 LVOT LVOT Pk Carlos Alberto: 1.36 LVOT Mn Carlos Alberto: 0.98 LVOT VTI: 0.32 LVOT Pk Grad: 7.00 LVOT Mn Grad: 5.00 LVOT Diam: 2.00 LVOT Area: 3.14 Diastolic Function MV Pk E: 1.09 MV Pk A: 1.05 E/A: 1.00 E'Medial: 5.66 E/E' Med: 19.30 E' Laterial: 7.72 E/E' Lat: 14.10 Right Ventricle TAPSE (mm): 25.30 TVS' Carlos Alberto: 14.00 Tricuspid Valve RA Press: 3.00 Great Vessels Aorta Ao Asc: 3.20 2.1-3.4 cm Updated in Other Vendor System with Status of Final Moises Cardoza MD electronically signed on 04/05/2025 1:43:00 PM with status of Final
--- OUTSIDE RECORDS SUMMARY | 2025-04-05 10:49 | XMS_ITS | Patient Health Record ---
Author Organization [facility] [address] Address [address] [place] [address] Care Team Providers Care Special Services Director Name Role Phone Jelani MUSE, Antonietta Segovia Primary Care Provider Un available Thom Wolff Unavailable [phone] Allergies No Known Allergies Reason For Referral No Information Medications Medication SIG (Take, Route, Fr equency, Duration) Notes Start Date End Date Status Albuterol PRN Active Lisinopril 5 MG 1 tablet Orally Once a day; Duration: 30 day(s) Active Immunizations Vaccine Route Administration [...] W/U Status Risk Notes Problem Plantar wart (B07.0) Active confirmed Plan Of Treatment Pending Test Test Name Order Date [id number] Destruction, 1-14 10/22/2021 Insurance Providers Payer Name Payer Address Payer Phone Subscriber Number Group Number Insured Name Patient Relationship to Insured Coverage Start Date Coverage End Date [facility] [address] [facility] [place] [address] [phone] [id number] Rebecca Simon Self - patient is the insured Medical (General) History Medical History History ICD Code osteoarthritis Knee Pain Skin Cancer Headaches/Migraines High blood pressure Chicken pox Bone implants/screws knee Surgical History Surgery Date(Month/Year) right knee replacement 09/22/2019
--- OUTSIDE RECORDS SUMMARY | 2025-04-05 10:49 | XMS_ITS | Patient Health Record ---
Author Organization [facility] Address [address] [place] [address] Care Team Providers Care Monitor Worker Name Role Phone Jelani MUSE, Antonietta Primary Care Provider Brad Quintanilla Unavailable [phone] Allergies Allergen (clinical drug ingredient) Drug/Non Drug [...] Problem Status W/U Status Risk Notes Problem 351485225 Colon cancer screening (Z12.11) Active confirmed Problem Diverticular disease of colon (136903194) Diverticulosis of large intestine without perforation or abscess without bleeding (K57.30) Active confirmed Problem 377254245 Gastroesophageal reflux disease without esophagitis (K21.9) Active confirmed Problem 820051486997531 Preprocedural examination (Z01.818) Active confirmed Problem 698731706 Fatty liver (K76.0) Active confirmed Encounters Encounter Location Date Provider Diagnosis [facility] Outpatient [address] [place] [address] [id number] 05/18/2024 Brad Fuentes Colon cancer scree annmarie [...] Insured Coverage Start Date Coverage End Date [facility] [address] [place] [address] [id number] ISIAH SYED Self - patient is the insured Medical (General) History Medical History History ICD Code Screening colonoscopies 1999 , 02-18-2005 and 12/2011 with only hyperplastic polyps GERD-EGD in 09/2000 with mini mal HH and no sig. esophagitis, gastric bx. neg for H.pylori Denies ID,DM,CVA,Lung disease,renal dise ase Hyperlipidemia Mild fatty liver with neg. w/u in 10/2011 , and just mildly elevated LFT's Seasonal allergies Hypertension Surgical History Surgery Date(Month/Year) Knee replacement on the right 2019 Future left knee replacement later in 20 23 Skin cancers on scalp, lip, and back
== END ==
LOC: HO.CARD 09:59
PROVIDERS: PCP Internal Medicine; Visit Provider Internal Medicine
DX: R06.09 Other forms of dyspnea (principal)
CPT/HCPCS: 93306; Q9957

== ENCOUNTER → 2025-04-05 10:02 | Outpatient (BNV) | payer OTHER, SELFPAY | PROVIDERS: PCP Internal Medicine; Visit Provider Internal Medicine Cardiovascular Disease | DX: I35.0 Nonrheumatic aortic (valve) stenosis (principal); I34.81 Nonrheumatic mitral (valve) annulus calcification | CPT/HCPCS: 93306 ==

== ENCOUNTER → 2025-04-26 09:53 | Outpatient (REF) | payer OTHER, SELFPAY ==
--- NOTE | ~2025-04-26 | NM_ITS ---
EXERCISE MYOCARDIAL PERFUSION STUDY INDICATION: Precordial chest pain to evaluate for myocardial ischemia TECHNIQUE: The patient was brought in for an exercise perfusion study on 04/26/2025. Patient performed exercise as per [facility] protocol and was injected 35 mCi of sestamibi once target heart rate was achieved. Images were obtained using the SPECT gamma camera interlaced with the gating device. Images were obtained in supine position. Resting perfusion study was performed on 05/01/2025. Patient was administered supine mCi of sestamibi intravenously at rest. Images were then obtained in supine position. Images obtained without without CT attenuation. Total DLP 159 mGy-cm. Images were processed with the software and compared side to side in short axis, horizontal long axis and vertical long axis views. FINDINGS: Raw images were reviewed The stress perfusion study showed both nonattenuated as well as attenuated images show normal uptake of radiotracer in all segments of the LV myocardium. There is suggestion of left ventricular hypertrophy. The gated study shows normal LV systolic function with visually estimated LVEF of greater than 60%. LV cavity is normal in size. The gated study shows normal systolic wall thickening and contraction of segments. Resting study shows attenuated corrected images show some thinning of the apex otherwise normal uptake of radiotracer in all segments of the LV myocardium. Gating at rest reveals normal systolic wall motion with ejection fraction at greater than 60%. The findings are consistent with normal myocardial perfusion. NM/NM cardiolite stress test IMPRESSION: 1. Myocardial perfusion imaging study shows normal myocardial perfusion. 2. Gated LVEF is greater than 60. 3. Transient ischemic dilatation not present. EKG revealed negative for ischemia. Electronically signed by: Moises Cardoza MD 05/01/2025 05:40 PM EDT
--- NOTE | 2025-04-26 10:00 | CA_ITS ---
Acquisition Time: 2025-04-26 10:11:00 Total Exercise Time: 00:05:15 Test Indications: Precordial Pain Medications: Protocol: ADA Max HR: 136 BPM 87% of Pred: 156 BPM Max BP: 158/80 mmHG Max Work Load: 7.0 METS Exercise stress test with exercise 5 mins 15 secs of Ada Protocol, achieving 85% MPHR, with rports of SOB and mild dizziness, no chest pain, with isolated PACs and PVCs, with normotensive response to exercise. Without any EKG changes meeting criteria for ischemia. In recovery, breathing improved and dizziness resolved. Nuclear images pending. Test reviewed with Dr. Stewart. Referred By: Nicola Iyer Electronically Signed By: Alfredo Connor
--- OUTSIDE RECORDS SUMMARY | 2025-04-26 10:31 | XMS_ITS | Patient Health Record ---
Author Organization [facility] [place] Address [address] [facility] [place] [address] Care Team Providers Care Live Source Operator Name Role Phone Jelani MUSE, Antonietta Segovia Primary Care Provider Un available Thom Wolff Unavailable [phone] Allergies No Known Allergies Reason For Referral [...] W/U Status Risk Notes Problem Plantar wart (75666692) Plantar wart (B07.0) Active confirmed Plan Of Treatment Pending Test Test Name Order Date [id number] Destruction, 1-14 10/22/2021 Insurance Providers Payer Name Payer Address Payer Phone Subscriber Number Group Number Insured Name Patient Relationship to Insured Coverage Start Date Coverage End Date [facility] [address] [place] [address] [phone] [id number] Rebecca Simon Self - patient is the insured Medical (General) History Medical History History ICD Code osteoarthritis Knee Pain Skin Cancer Headaches/Migraines High blood pressure Chicken pox Bone implants/screws knee Surgical History Surgery Date(Month/Year) right knee replacement 09/22/2019
--- OUTSIDE RECORDS SUMMARY | 2025-04-26 10:31 | XMS_ITS | Patient Health Record ---
Author Organization [facility] Address [address] [place] [address] Care Team Providers Care Channeler Runner Name Role Phone Jelani MUSE, Antonietta Primary Care Provider Brad Quintanilla Unavailable [phone] Allergies Allergen (clinical drug ingredient) Drug/Non Drug [...] Problem Status W/U Status Risk Notes Problem 801968077 Colon cancer screening (Z12.11) Active confirmed Problem Diverticular disease of colon (338073057) Diverticulosis of large intestine without perforation or abscess without bleeding (K57.30) Active confirmed Problem 254120618 Gastroesophageal reflux disease without esophagitis (K21.9) Active confirmed Problem 079298764430982 Preprocedural examination (Z01.818) Active confirmed Problem 220880540 Fatty liver (K76.0) Active confirmed Encounters Encounter Location Date Provider Diagnosis [facility] Outpatient [address] [place] [address] [id number] 05/18/2024 Brad Fuentes Colon cancer scree annmarie [...] Insured Coverage Start Date Coverage End Date [facility] [address] [place] [phone] [id number] ISIAH SYED Self - patient is the insured Medical (General) History Medical History History ICD Code Screening colonoscopies 1999 , 02-18-2005 and 12/2011 with only hyperplastic polyps GERD-EGD in 09/2000 with mini mal HH and no sig. esophagitis, gastric bx. neg for H.pylori Denies NH,DM,CVA,Lung disease,renal dise ase Hyperlipidemia Mild fatty liver with neg. w/u in 10/2011 , and just mildly elevated LFT's Seasonal allergies Hypertension Surgical History Surgery Date(Month/Year) Knee replacement on the right 2019 Future left knee replacement later in 20 23 Skin cancers on scalp, lip, and back
--- OUTSIDE RECORDS SUMMARY | 2025-04-26 10:31 | XMS_ITS ---
Author Name Florencia Abreu Address Unknown Organization [facility] Care Team Providers Care Commercial Account Officer Name Role Phone Unavailable Primary Care Physician Unavailab le History Of Present Illness This is a 64 year old female who is an established patient who is being seen for an evaluation of skin lesions.Location: right upper backQuality: asymptomaticSeverity: mildDuration: yearsHistory of Previous Treatments: has not been treatedPertinent History: actinic keratoses, basal cell skin cancer, family history of melanoma (Brother ), family history of non-melanoma skin cancer, and squamous cell skin cancer Pertinent Negatives: no history of melanomaAdditional Visit Reasons: education and counseling about sun exposure, evaluation for suspicious growths, and evaluation of current nevi Allergies, Adverse Reactions, Alerts Substance RxNorm Reaction(s) Severity Status Start Da te Zomig unspecified active Medications Medication Generic Name RxNorm Strength Strength Unit Route Dose Dose Form Frequency Date Started Date Ended Status Indication Sig calcipotrie ne calcipot riene 19830316 0.005 % Topica l thin layer ointm ent prn 01/15/20 23 active Appl y BID to red, scal y area s on scal p/fa ce x4 days prio r to usin g 5-Fl uoro urac il. When usin g 5-FU , expe ct redn ess, elisa ting , irri brant on. Efudex fluorour acil 681847 5 % Topica l cream BID 02/24/20 24 suspend ed Appl y thin laye r 4 nigh ts/w [place]roqu[place] to L jose alfredo k, scal p x oralia ral adriana hs unti l skin is no long er scal y, sens itiv e when scra tche d. Shou ld not note (tho ugh okay if occu rs) incr ease d redn ess, elisa ting , irri brant on. Can decr ease freq uenc y or hold use PRN Finacea azelaic acid 2488052 15 % Topica l thin layer foam pro 01/02/20 11 active MetroCream metronid azole 459516 0.75 % Topica l thin layer cream prn 12/27/19 09 active lisinopril lisinopr il 5 mg Oral 2 table t qd active omeprazole omeprazo le Oral 1 table t pro active [place]obetasol [place] 334819 0.05 % Scalp solut ion 04/25/20 25 active Appl y a thin laye r twic e a day for 2 week s and then one week off, repe at if need ed. Problems Problem Code Type Status Date of Diagnosis Da te of Resolution Pruritic disorder of skin (disorder) 6855361304(S NOMED) Diagnosis active 04/25/2025 Melanocytic nevus of trunk (disorder) 094372227(SN OMED) Diagnosis active 04/25/2025 Epidermoid cyst of skin (disorder) 155226659(SN OMED) Diagnosis active 04/25/2025 Hemangioma of skin and subcutaneous tissue (disorder) 243812204(SN OMED) Diagnosis active 04/25/2025 Disorder of pigmentation (disorder) 954458396(SN OMED) Diagnosis active 04/25/2025 Seborrheic keratosis (disorder) 171031070(SN OMED) Diagnosis active 04/25/2025 Scar conditions and fibrosis of skin (disorder) (SN OMED) Diagnosis active 04/25/2025 Actinic keratosis (disorder) (SN OMED) Diagnosis active 02/24/2024 Neoplasm of uncertain behavior of skin (disorder) 84492635(SNO MED) Diagnosis active 02/24/2024 Eczema (disorder) 91773142(SNO MED) Diagnosis active 02/24/2024 Epidermoid cyst of skin (disorder) 053938984(SN OMED) Diagnosis active 02/24/2024 Melanocytic nevus of trunk (disorder) 086935808(SN OMED) Diagnosis active 02/24/2024 Seborrheic keratosis (disorder) 121461353(SN OMED) Diagnosis active 02/24/2024 Hemangioma of skin and subcutaneous tissue (disorder) 871785068(SN OMED) Diagnosis active 02/24/2024 Disorder of pigmentation (disorder) 570366222(SN OMED) Diagnosis active 02/24/2024 History of malignant neoplasm of skin (situation) 015284928(SN OMED) Diagnosis active 02/24/2024 Basal cell carcinoma of truncal skin (disorder) 159682964(SN OMED) Diagnosis active 01/29/2023 Neoplasm of uncertain behavior of skin (disorder) 90697907(SNO MED) Diagnosis active 01/14/2023 Actinic keratosis (disorder) (SN OMED) Diagnosis active 01/14/2023 Scar conditions and fibrosis of skin (disorder) 193609083(SN OMED) Diagnosis active 01/14/2023 Epidermoid cyst of skin (disorder) 412332686(SN OMED) Diagnosis active 01/14/2023 Melanocytic nevus of trunk (disorder) 909358872(SN OMED) Diagnosis active 01/14/2023 Seborrheic keratosis (disorder) 380661353(SN OMED) Diagnosis active 01/14/2023 Hemangioma of skin and subcutaneous tissue (disorder) 744350251(SN OMED) Diagnosis active 01/14/2023 Disorder of pigmentation (disorder) 727891985(SN OMED) Diagnosis active 01/14/2023 History of malignant neoplasm of skin (situation) 148157989(SN OMED) Diagnosis active 01/14/2023 Surgical follow-up (finding) 341439549(SN OMED) Diagnosis active 11/20/2022 Basal cell carcinoma of skin of lip (disorder) 499396135(SN OMED) Diagnosis active 11/10/2022 Actinic keratosis (disorder) (SN OMED) Diagnosis active 07/17/2022 Neoplasm of uncertain behavior of skin (disorder) 85116907(SNO MED) Diagnosis active 07/17/2022 Benign neoplasm of skin of face (disorder) 13393188(SNO MED) Diagnosis active 07/17/2022 History of malignant neoplasm of skin (situation) 275417837(SN OMED) Diagnosis active 07/17/2022 Melanocytic nevus of trunk (disorder) 884599918(SN OMED) Diagnosis active 07/17/2022 Seborrheic keratosis (disorder) 523530121(SN OMED) Diagnosis active 07/17/2022 Hemangioma of skin and subcutaneous tissue (disorder) 402403750(SN OMED) Diagnosis active 07/17/2022 Disorder of pigmentation (disorder) 208950962(SN OMED) Diagnosis active 07/17/2022 Epidermoid cyst of skin (disorder) 947357097(SN OMED) Diagnosis active 07/17/2022 Dystrophia unguium (disorder) 12627086(SNO MED) Diagnosis active 07/17/2022 Neoplasm of uncertain behavior of skin (disorder) 71354381(SNO MED) Diagnosis active 03/05/2022 Actinic keratosis (disorder) (SN OMED) Diagnosis active 02/26/2022 Benign neoplasm of skin of face (disorder) 33924905(SNO MED) Diagnosis active 02/26/2022 Seborrheic keratosis (disorder) 501808149(SN OMED) Diagnosis active 02/26/2022 Melanocytic nevus of face (disorder) 909531259(SN OMED) Diagnosis active 02/26/2022 Actinic keratosis (disorder) (SN OMED) Diagnosis active 10/11/2021 Neoplasm of uncertain behavior of skin (disorder) 13102967(SNO MED) Diagnosis active 10/11/2021 Benign neoplasm of skin of face (disorder) 77829180(SNO MED) Diagnosis active 10/11/2021 Dystrophia unguium (disorder) 57061203(SNO MED) Diagnosis active 10/11/2021 History of malignant neoplasm of skin (situation) 952650275(SN OMED) Diagnosis active 10/11/2021 Melanocytic nevus of trunk (disorder) 171353406(SN OMED) Diagnosis active 10/11/2021 Seborrheic keratosis (disorder) 990230038(SN OMED) Diagnosis active 10/11/2021 Hemangioma of skin and subcutaneous tissue (disorder) 377171565(SN OMED) Diagnosis active 10/11/2021 Disorder of pigmentation (disorder) 351949320(SN OMED) Diagnosis active 10/11/2021 Epidermoid cyst of skin (disorder) 936300748(SN OMED) Diagnosis active 10/11/2021 Asteatosis cutis (disorder) 68704952(SNO MED) Diagnosis active 10/11/2021 Callosity (disorder) 458344894(SN OMED) Diagnosis active 10/11/2021 Actinic keratosis L57.0(ICD-10 ) Diagnosis active 08/26/2019 Personal history of other malignant neoplasm of skin Z85.828(ICD- 10) Diagnosis active 08/26/2019 Neoplasm of uncertain behavior of skin D48.5(ICD-10 ) Diagnosis active 08/26/2019 Actinic keratosis L57.0(ICD-10 ) Diagnosis active 07/11/2019 Personal history of other malignant neoplasm of skin Z85.828(ICD- 10) Diagnosis active 07/11/2019 Neoplasm of uncertain behavior of skin (disorder) 94041626(SNO MED) Diagnosis active 03/28/2019 Encounter for immunization Z23(ICD-10) Diagnosis active 01/26/2019 Melanocytic nevus of trunk (disorder) 659661588(SN OMED) Diagnosis active 01/26/2019 History of hypertension (situation) 173593144(SN OMED) Problem active Asthma (disorder) 861146330(SN OMED) Problem active Actinic keratosis (disorder) 273591250(SN OMED) Problem active Squamous cell carcinoma (disorder) 957828493(SN OMED) Problem active Basal cell carcinoma of skin (disorder) 116441092(SN OMED) Problem active Results No data Encounters Service provided at [facility], [address] [place] [address], [address], [place], [place] [id number]. Office phonenumber is [phone]. Office fax number is [phone]. Encounter Diagnosis Location Date / Time Type Pruritus NOS (L29.9)Benign A ppearing Nevi (D22.5)Epidermal Inclusion Cyst (L72.0)Kessler Angiomas (D18.01)Lentigines (L81.4)Seborrheic Keratoses (L82.1)Scar (L90.5) [facility] 04/25/2025 12:45:00 [facility] [id number] Reason For Referral No data Procedures Procedure Date Cryotherapy of skin lesion with liquid n itrogen (procedure) 02/24/2024 12:00 am [place] Tumor destruction (procedure) 01/29/2023 12:00 am [place] Shave biopsy (procedure) 01/14/2023 12:0 0 am [facility] Mohs surgery (procedure) 11/10/2022 12:0 0 am [place] Shave biopsy (procedure) 07/17/2022 12:0 0 am [place] Cryotherapy of skin lesion with liquid n itrogen (procedure) 02/26/2022 12:00 am [place] Cryotherapy of skin lesion with liquid n itrogen (procedure) 10/11/2021 12:00 am [facility] Biopsy of breast (procedure) Documentation of past medical history (p rocedure) Biopsy of breast (procedure) Documentation of past medical history (p rocedure) Biopsy of breast (procedure) Documentation of past medical history (p rocedure) Documentation of past medical history (p rocedure) Biopsy of breast (procedure) Biopsy of breast (procedure) Documentation of past medical history (p rocedure) Biopsy of breast (procedure) Total replacement of right knee joint (p rocedure) Total replacement of right knee joint (p rocedure) Biopsy of breast (procedure) Biopsy of breast (procedure) Total replacement of right knee joint (p rocedure) Biopsy of breast (procedure) Total replacement of right knee joint (p rocedure) Total replacement of right knee joint (p rocedure) Biopsy of breast (procedure) Total replacement of left knee joint (pr ocedure) Total replacement of right knee joint (p rocedure) Biopsy of breast (procedure) Biopsy of breast (procedure) Total replacement of left knee joint (pr ocedure) Total replacement of right knee joint (p rocedure) Biopsy of breast (procedure) Right breas t remove benign lump Total replacement of left knee joint (pr ocedure) Total replacement of right k nee joint (procedure) 09/22/201908/2023 left knee Review Of Systems Provider reviewed on Apr 25, 2025.A complete review of systems was performed and was notable for hay fever.No Problems With Healing, No Problems With Scarring (hypertrophic Or Keloid), No Problems With Bleeding, No Immunosuppression, No Chest Pain, No Fever Or Chills, No Night Sweats, No Unintentional Weight Loss, No Thyroid Problems, No Sore Throat, No Blurry Vision, No Abdominal Pain, No BloodyStool, No Bloody Urine, No Joint Aches, No Muscle Weakness, No Neck Stiffness, No Headaches, No Seizures, No Shortness Of Breath, No Wheezing, No Anxiety, And No Depression. Assessment 1.Pruritus NOSCounselingPrescription: clobetasol 0.05 % scalp solution ScalpPrescription MedicationManagement: Plan - :Rx today:1. Clobetasol 0.05 % scalp solution x BID, 2 weeks on, 1 week off. Repeat as needed. Continue:Efudex as needed.;.2.Benign Appearing NeviCounseling3.Epidermal Inclusion Cys tCounseling4.Kessler AngiomasCounseling5.LentiginesCounseling6.Seborrheic KeratosesCounselingPointedOut by Patient7.Scar - See historical summaryCounseling Plan of Care Future visit for 04/25/2026 - Follow up in 1 year for: Skin Check - 15 minutes Code Detail Instructions 276882 clobetasol 0.05 % scalp solution Apply a thin layer twice a day for 2 weeks and then one week off, repeat if needed. 21291217 Efudex 5 % topical cream Apply t hin layer 4 nights/week to L cheek, scalp x several months until skin is no longer scaly, sensitive when scratched. Should not note (though okay if occurs) increased redness, crusting, irritation. Can decrease frequency or hold use PRN 941622 calcipotriene 0.005 % topical oi ntment Apply BID to red, scaly areas on scalp/face x4 days prior to using 5-Fluorouracil. When using 5-FU, expect redness, crusting, irritation. 501578 mupirocin 2 % topical ointment A pply twice a day to surgical site for 14 days or until fully healed 620998 amoxicillin 500 mg capsule Take 4 tablets by mouth 1 hour prior to surgery. 955234 Efudex 5 % topical cream Apply a thin layer BID to red, scaly, sensitive areas on face/scalp x2-6 weeks. Expect redness, crusting, irritation. No pain/bleeding. Treat segmentally Instructions * I counseled the patient regarding the following:Skin care: Avoid scratching the area if possible. Apply ice or sarna anti-itch cream to the area to decrease pruritus. Regular topical application of over the counter capsaicin cream can help over time. Investigation for neck problems may be necessary. Expectations: Notalgia paresthetica is a relatively common condition which causes localized itchingor mild pain near the scapula. It occurs secondary to nerve problems, often associated with neck pathology.Contact office if: your pruritus worsens.I recommended the following: Capsaicin CreamThe following medication counseling was provided:Topical Steroids Counseling: I discussed with the patient that prolonged use of topical steroids can result in the increased appearance of superficial blood vessels (telangiectasias), lightening (hypopigmentation) and thinning of the skin (atrophy). Patient u nderstands to avoid using high potency steroids in skin folds, the groin or the face. The patient verbalized understanding of the proper use and possible adverse effects of topical steroids. All of the patient's questions and concerns were addressed. * I counseled the patient regarding the following:ABCDEs of MM reviewed, handout provided. Monthly self skin exam with prompt reporting of concerns advised.Expectations: Benign Nevi are pigmented nestsof cells within the skin. No treatment is necessary.Contact Office if: Any moles change in size, shape or color; itch, burn or bleed. * I counseled the patient regarding the following:Skin Care: Cysts require no specific skin care.Expectations: Epidermal Inclusion Cysts are benign sacs within the skin that contain keratin.Contact Office if: Cysts rupture or become red and tender. * I counseled the patient regarding the following:Counseling: Education and reassurance provided, benign.Expectations: Kessler Angiomas are benign vascular growths. No treatment is necessary. * I counseled the patient regarding the following:Education, sun safety reviewed.Expectations: Lentigines are benign pigmented lesions that occur on sun-exposed and sun-damaged skin. They are easily treatable.I recommended the following: Sunscreen * I counseled the patient regarding the following:Counseling: Education and reassurance provided, benign.Expectations: Seborrheic Keratoses are benign warty growths. Patients get more of them as they age. * I counseled the patient regarding the following:Patients with a history of non-melanoma skin cancershould wear broad spectrum sunscreen and sun protective clothing.Scars from excisional sites of non-melanoma skin cancers should be monitored for any recurrences.If the patient notices discoloration o r a bump arising from a previously stable scar or any new lesions that are not healing.I recommended the following: Broad Spectrum Sunscreen SPF 30+ Social History Code Activity Start Date End Date [id number] (SNOMED) Former smoker Sex female Sexual orientation Unspecified Gender identity Unspecified Vital Signs No data
== END ==
LOC: HO.CARD 09:53
PROVIDERS: PCP Internal Medicine; Visit Provider Internal Medicine
DX: R07.2 Precordial pain (principal); R06.09 Other forms of dyspnea
CPT/HCPCS: 78452; 93017; A9500

== ENCOUNTER → 2025-04-26 10:00 | Outpatient (BNV) | payer OTHER, SELFPAY | PROVIDERS: PCP Internal Medicine | DX: R06.02 Shortness of breath (principal); I49.1 Atrial premature depolarization; I49.3 Ventricular premature depolarization | CPT/HCPCS: 78452; 93016; 93018 ==

== ENCOUNTER 2025-05-25 10:05 | Outpatient (AMB) | payer OTHER, SELFPAY ==
[2025-05-25 10:07] VITALS: BP 120/78; PULSE 60; BMI 41.6
--- NOTE | 2025-05-25 10:07 | MHC.OFFVIS ---
Vital Signs 05/25/25 10:07 Height 5 ft 6 in Weight 257 lb 7.999 oz BMI 41.6 BP 120/78 Blood Pressure Location Lt brachial Position Sitting Pulse 60 Pulse Source Pulse Oximeter Intake Visit Reasons: testings Accompanied by: Self / Same As Patient Allergies zolmitriptan (From ZOMIG) Allergy (Unknown, Verified 05/25/25 10:10) UNKNOWN Medication List - Last Reconciled 05/25/25 by Donna Monet NP-C albuterol sulfate 90 mcg/actuation 2 puffs inhalation Q6H PRN lisinopril 10 mg PO DAILY 90 days HPI HPI testings: Details: Rebecca is a 64-year-old female past medical history of hypertension, hyperlipidemia, morbid obesity, known aortic and mitral calcification who is being evaluated for shortness of breath. She recently had an echocardiogram and exercise nuclear stress test and now presents for follow-up. Today she reports that she has chronic stable shortness of breath with exertional activities. This symptom has been going on for many years without recent change. No chest discomfort, heart palpitations, lightheadedness. No PND, orthopnea or edema. She walks routinely for exercise. She has issues with arthritis and takes ibuprofen frequently. She states this is the reason why her liver tests are mildly elevated but stable. She has never tried cholesterol-lowering medications. [facility] Medical History MENON (dyspnea on exertion) History of basal cell cancer Hyperlipidemia Seasonal allergies Skin cancer Elevated liver enzymes GERD (gastroesophageal reflux disease) Fatty liver Mixed dyslipidemia Environmental and seasonal allergies Menopause syndrome Osteoarthritis of knees, bilateral Vitamin D deficiency Morbid obesity Essential hypertension Surgical History History of Mohs surgery for squamous cell carcinoma of skin History of esophagogastroduodenoscopy (EGD) History of total right knee replacement History of arthroplasty of right knee Hx of colonoscopy Family History Maternal Aunt Mental health disorder History of breast cancer Maternal Grandfather Mental health disorder Father COPD (chronic obstructive pulmonary disease) CHF (congestive heart failure) Mother Hypertension Cancer Social History Housing: House Are you a primary direct care worker to a significant other at home: No Do you presently have visiting nurse or other home services: No Alcohol intake: current Alcohol intake frequency: a few times a month Patient Tobacco Use Status: Former Tobacco user e-Cigarette/Vaping Use: Never Used service: No Current occupational status: retired Sexual orientation: Straight/Heterosexual Gender identity: Female Cognitive needs: No Hearing needs: No Vision needs: Yes Review of Systems Const All systems reviewed & are unremarkable except as noted in HPI and below Denies daytime sleepiness, Denies difficulty sleeping, Denies snoring, Denies stops breathing during sleep and Denies weakness Card Denies chest pain, Denies rapid heart rate, Denies irregular heart rhythm, Denies claudication, Denies leg edema, Denies lightheadedness, Denies palpitations, Denies dyspnea, Reports dyspnea on exertion, Denies orthopnea, Denies paroxysmal nocturnal dyspnea and Denies slow heart rate Resp Denies cough, Denies dyspnea, Reports dyspnea on exertion and Denies snoring GI Reports no additional complaints, Denies hematochezia, Denies change in stool character and Denies dyspepsia Musc Denies abnormal gait, Denies muscle weakness and Denies numbness Neuro Denies abnormal gait, Denies numbness and Denies weakness Endo Denies palpitations Physical Exam Vital Signs: Last Vital Signs Pulse 60 05/25/25 10:07 BP 120/78 05/25/25 10:07 BMI result Body Mass Index 41.6 Const General: cooperative, healthy appearing, comfortable and no acute distress Orientation/consciousness: patient oriented x3 Neck Neck: Yes normal visual inspection Resp Effort & Inspection: normal respiratory effort Auscultation: clear to auscultation bilaterally, no rales, no rhonchi and no wheezes Cardio Rate: regular rate Rhythm: regular rhythm Heart sounds: S2 normal heart sound present, no gallops, Murmur heart sound present (faint systolic murmur noted right and left sternal border) and no rubs Skin General skin exam: no rashes or lesions noted Neuro General: patient oriented x3 Extrem General: Yes normal to inspection, No no pedal edema and No calf tenderness Psych Appearance: grossly normal Mental Status: mental status grossly normal Speech and movement: Normal speech and movement present Assessment & Plan Assessment & Plan (1) Aortic stenosis: Code(s): I35.0 - Nonrheumatic aortic (valve) stenosis Category: Medical Plan: Echocardiogram from 2022 showed mild calcification of the aortic valve. For her symptom of shortness of breath with exertion she underwent a repeat echocardiogram 04/05/2025 showing EF greater than 70%, mild LVH, [id number] aortic stenosis, severe mitral annular calcification. Her shortness of breath symptom is not related to her valve dysfunction. Diagnosis of aortic stenosis reviewed with her in detail. Cardinal signs of severe discussed. Will plan for repeat echocardiogram in 1 year. Will start on atorvastatin. Cardiology follow-up 1 year, sooner if needed. (2) Mitral annular calcification: Code(s): I34.81 - Nonrheumatic mitral (valve) annulus calcification Category: Medical Plan: Recent echocardiogram showing mild anterior and severe posterior mitral leaflet thickening, severe mitral annular calcification with trace mitral regurgitation, no mitral stenosis. (3) MENON (dyspnea on exertion): Code(s): R06.09 - Other forms of dyspnea Category: Medical Plan: Chronic stable shortness of breath with exertion. No cardiac finding to account for this symptom. History of asthma which could be contributing. She also has morbid obesity which can contribute. Continue physical activity as tolerated, weight loss recommended. (4) Essential hypertension: Code(s): I10 - Essential (primary) hypertension Category: Medical Plan: Blood pressure goal less than 130/80. Well controlled at this time. Labs 01/30/2025 showed creatinine 0.71. Continue lisinopril. (5) Mixed dyslipidemia: Code(s): E78.2 - Mixed hyperlipidemia Category: Medical Plan: Ismay LDL goal less than 100. Labs done 01/30/2025 showed LDL 130, AST 61, ALT 64. She reports frequent ibuprofen use for her arthritis. Liver functions have been chronically elevated and remained stable. Will try statin therapy. Will start atorvastatin 20 mg daily with repeat lipids and liver tests in 6 weeks. Plan Time spent on chart review, documentation, interview and assessment Orders: Orders CA echo transthoracic complete 11 Months I34.81 - Nonrheumatic mitral (valve) annulus calcification, I35.0 - Nonrheumatic aortic (valve) stenosis Lipid Panel 6 Weeks E78.2 - Mixed hyperlipidemia Liver Panel 6 Weeks E78.2 - Mixed hyperlipidemia Medications: New atorvastatin (Lipitor) 20 mg PO BEDTIME 30 tabs 5RF Coding Level of Care Code Est Pt Level 4 (01129) Complex EM visit Add On G2211 Diagnoses Aortic stenosis I35.0 Mitral annular calcification I34.81 MENON (dyspnea on exertion) R06.09 Essential hypertension I10 Mixed dyslipidemia E78.2 Time Spent (min) 36
== END 2025-05-25 10:50 | disposition home or self-care (01) ==
PROVIDERS: PCP Internal Medicine; Visit Provider Nurse Practitioner Family
DX: I35.0 Nonrheumatic aortic (valve) stenosis (principal); I34.81 Nonrheumatic mitral (valve) annulus calcification; R06.09 Other forms of dyspnea; I10 Essential (primary) hypertension; E78.2 Mixed hyperlipidemia
CPT/HCPCS: 99214; G2211